=== PATIENT | male | born 1950 | race Caucasian/White ===

== ENCOUNTER 2023-05-22 16:15 | Inpatient (IN) ==
[2023-05-22] MEDS ORDERED: ALBUTEROL 0.083% NEB NEB ONE (16:37)
[2023-05-22] MEDS ORDERED: LACTATED RINGERS 1,000 ML IV ONE (16:38)
--- NOTE | 2023-05-22 16:50 | ED.PDOC ---
General ED Provider: Dr. DORIS OWENS MD Chief Complaint: Cough Stated Complaint: cough 72 years old male with past medical history of coronary artery disease status post CABG, hypertension, diabetes, dyslipidemia coming to the emergency room for cough and fever. Patient reports that his cough is productive with greenish- yellow sputum associated with some shortness of breath. Patient tried some antibiotic was leftover from his but did not help. Patient denies any history of kidney disease. No chest pain, nausea, vomiting, changes in bowel or urine. Time Seen by Provider: 05/22/23 16:20 Information Source: Patient and Family Primary Care Provider: NANCI CAIN Nursing and Triage Documentation Reviewed and Agree: Yes What is Opioid Naive?: *Opioid Naive implies the patient is not already taking opioids or not chronically receiving opioids on a daily basis. *PRN dosing is not "usually" associated with tolerance. *Patients are at higher risk of over-sedation and aspiration. What is Opioid Tolerant?: *Opioid Tolerance implies less than the expected response to an opioid. *Acquired tolerance is defined by the patient taking 60mg of oral morphine daily (or equianalgesic dose of another opioid) for 1 week or more. *Often associated with chronic pain. *May take more than usual dose to achieve desired pain control. Review of Systems Review Of Systems Constitutional: Reports No symptoms All Other Systems: Reviewed and Negative Physical Exam Physical Exam Appearance: Reports Ill-appearing Ill-appearing: Mild Pain Distress: None Eyes: Reports KIMMY and EOMI ENT: Reports Ears normal and Nose normal Neck: Supple Respiratory: Reports Breath sounds diminished and Rhonchi (middle lobes bilateral) Cardiovascular: Reports RRR, Pulses normal, No rub and No murmur GI/: Reports Soft, Nontender and No masses Musculoskeletal: Reports Normal strength and ROM intact Skin: Reports Warm and Normal color Neurological: Reports Sensation intact and Motor intact Interpretation EKG Interpretation EKG Interpretation By: ED Physician Time of EKG #1: 16:50 Rate: Normal Rhythm: Sinus Ectopy: None Tiller: NL ST Segment: Normal Interpretation: no signs of acute ischemia Critical Care Note Critical Care Note Total Critical Care Time (mins): 0 Course Course 05/22/23 17:19 05/22/23 17:19 Orders, Labs, Meds: Lab Review 05/22/23 05/22/23 16:45 17:19 WBC 20.04 H RBC 3.90 L Hgb 12.0 L Hct 38.0 L MCV 97.4 H MCH 30.8 MCHC 31.6 L RDW Coeff of Shaun 14.0 Plt Count 193 Immature Gran % (Auto) 0.6 Neut % (Auto) 87.1 H Lymph % (Auto) 5.7 L Redwood % (Auto) 6.1 Eos % (Auto) 0.1 Baso % (Auto) 0.4 Neut # (Auto) 17.5 H Lymph # (Auto) 1.2 Redwood # (Auto) 1.2 Eos # (Auto) 0.0 Baso # (Auto) 0.1 Immature Gran # (Auto) 0.1 Sodium 138.7 Potassium 3.93 Chloride 103.0 Carbon Dioxide 26.9 Anion Gap 12.73 BUN 48.9 H Creatinine 1.91 H Estimated GFR (MDRD) 35.00 BUN/Creatinine Ratio 25.60 Glucose 161.6 H Lactic Acid 1.42 Calcium 8.60 Total Bilirubin 0.50 AST 234.2 H ALT 51.1 H Alkaline Phosphatase 138.7 H Total Protein 7.83 Albumin 3.78 Globulin 4.05 Albumin/Globulin Ratio 0.93 Influ A Molecular Assay Negative by naat Influ B Molecular Assay Negative by naat RSV Antigen Negative by naat SARS CoV-2 RNA Rapid ALEXANDER Negative Orders Category Date Time Status ADMIT PATIENT INPATIENT .[facility] ADMISSION 05/22/23 18:53 Ordered EKG-(ED ONLY) Stat CARDIO 05/22/23 16:37 Completed NEBULIZER TREATMENT Routine CARDIO 05/22/23 16:38 Completed NEBULIZER TREATMENT Stat CARDIO 05/22/23 16:38 Completed IV ACCESS ONCE CARE 05/22/23 16:38 Active TELEMETRY MONITORING TELE CARE 05/22/23 18:53 Ordered Monitor [ED TERRA COTTA SETTER APPLIED] .ONCE EMERGENCY 05/22/23 16:39 Active BLOOD CULTURE Stat LAB 05/22/23 18:09 Ordered CBC W/ AUTO DIFF Stat LAB 05/22/23 17:19 Completed CMP [COMPREHENSIVE METABOLIC PANEL] Stat LAB 05/22/23 17:19 Completed COVID [SARS COV-2 RNA RAPID ALEXANDER] Stat LAB 05/22/23 16:45 Completed FLU A & B MOLECULAR [FLU A/B MOLECULAR] Stat LAB 05/22/23 16:45 Completed LACTIC ACID Stat LAB 05/22/23 17:19 Completed LACTIC ACID Stat LAB 05/22/23 18:09 Ordered RSV Stat LAB 05/22/23 16:45 Completed Albuterol Sulfate 0.083% Neb [Albuterol 0.083% Neb] Meds 05/22/23 16:37 Discontinued 2.5 mg NEB ONCE ONE Azithromycin Inj [Zithromax] 500 mg Meds 05/22/23 18:00 Active 0.9 % Sodium Chloride [Sodium Chloride] 250 ml IV ONCE Ceftriaxone/D5w 1 gm Premix [Rocephin 1 gm/50 ml D5w] Meds 05/22/23 18:00 Discontinued 1 gm in 50 ml IV ONCE Ringers Lactated Solution [Lactated Ringers] 1,000 ml Meds 05/22/23 16:38 Discontinued IV BOLUS CXR [CHEST, 1V AP ONLY] Stat RADS 05/22/23 17:47 Completed Medications Generic Name Dose Route Start Last Admin Trade Name Freq PRN Reason Stop Dose Admin Azithromycin 500 mg/ Sodium 250 mls @ 250 mls/hr 05/22/23 18:00 Chloride IV 05/22/23 18:59 ONCE ONE Discontinued Medications Generic Name Dose Route Start Last Admin Trade Name Freq PRN Reason Stop Dose Admin Albuterol Sulfate 2.5 mg 05/22/23 16:37 05/22/23 17:02 Albuterol Sulfate 0.083% Vial.Neb NEB 05/22/23 16:38 2.5 mg ONCE ONE Administration Lactated Ringer's 1,000 mls @ 1,000 mls/hr 05/22/23 16:38 05/22/23 18:00 Lactated Ringers IV 05/22/23 17:37 Infused BOLUS ONE Infusion CEFTRIAXONE/D5W 1 GM PREMIX 1 gm in 50 mls @ 100 mls/hr 05/22/23 18:00 05/22/23 18:42 Rocephin 1 Gm/50 Ml D5w IV 05/22/23 18:29 100 mls/hr ONCE ONE Administration Vital Signs: Temp Pulse Resp BP Pulse Ox O2 Flow Rate 05/22/23 16:52 2 05/22/23 16:18 99.0 F 86 20 121/70 89 L Discharge Plan Discharge Patient Disposition: ADMITTED INPATIENT Discharge Problem: Acute renal failure, CAP (community acquired pneumonia) Did you review [place] [employer] for ALL controlled substances?: Not Applicable ED Provider: DORIS OWENS Condition: Stable Physician Progress Note: Patient CBC showed leukocytosis with left shift, chest x-ray showing pneumonia. Patient was given Rocephin and azithromycin IV and a liter of lactated Ringer. Patient was hypoxic on room air started on 2 L nasal cannula called the hospitalist on-call Arelis discussed the patient case with her and the need for admission for further IV antibiotics and IV fluids and she agreed to admit the patient to her services.
[2023-05-22 17:33] LABS: MOLECULAR FLU A NEGATIVE BY NAAT (NEGATIVE); MOLECULAR FLU B NEGATIVE BY NAAT (NEGATIVE); RSV MOLECULAR NEGATIVE BY NAAT (NEGATIVE); SARS COV-2 RNA RAPID NAAT NEGATIVE (NEGATIVE)
[2023-05-22 17:35] LABS: BASOPHILS # (AUTO) 0.1 K/uL (0-0.2); BASOPHILS % (AUTO) 0.4 % (0.0-3.0); EOSINOPHILS % (AUTO) 0.1 % (0.0-7.0); IMMATURE GRANULOCYTE # (AUTO) 0.1 (0.0-1.0); IMMATURE GRANULOCYTE % (AUTO) 0.6 % (0.0-5.0); LYMPHOCYTES # (AUTO) 1.2 K/uL (0.60-3.4); LYMPHOCYTES % (AUTO) 5.7 (10.0-50.0); MEAN CORPUSCULAR HEMOGLOBIN 30.8 pg (27.0-31.0); MEAN CORPUSCULAR HGB CONC 31.6 (31.8-35.4); MEAN CORPUSCULAR VOLUME 97.4 fl (80.0-94.0); MONOCYTES # (AUTO) 1.2 K/uL (0.4-2.0); MONOCYTES % (AUTO) 6.1 (0-10); NEUTROPHILS # (AUTO) 17.5 K/ul (2.0-6.9); NEUTROPHILS % (AUTO) 87.1 % (42.2-75.2); PLATELET COUNT 193 10^3/uL (140-440); WHITE BLOOD COUNT 20.04 K/ul (4.2-10.2)
[2023-05-22 17:42] LABS: ALANINE AMINOTRANSFERASE 51.1 U/L (0-50); ALBUMIN 3.78 g/dL (3.5-5.0); ALKALINE PHOSPHATASE 138.7 U/L (56-119); ASPARTATE AMINO TRANSFERASE 234.2 U/L (17-59); BILIRUBIN,TOTAL 0.5 mg/dL (0.2-1.3); BLOOD UREA NITROGEN 48.9 mg/dL (9-20); CALCIUM 8.6 mg/dL (8.4-10.2); CARBON DIOXIDE 26.9 mmol/L (22-30.0); CREATININE 1.91 mg/dL (0.60-1.10); GLUCOSE 161.6 mg/dL (74-106); SODIUM 138.7 mmol/L (134.5-145); TOTAL PROTEIN 7.83 g/dL (6.3-8.2)
[2023-05-22] MEDS ORDERED: ROCEPHIN 1 GM/50 ML D5W 1 GM/50 ML BAG IV ONE (18:00)
[2023-05-22] MEDS ORDERED: ZITHROMAX 500 MG in SODIUM CHLORIDE 250 ML IV ONE (18:00)
[2023-05-22 18:23] LABS: POTASSIUM 3.93 mmol/L (3.5-5.1)
--- NOTE | 2023-05-22 18:40 | DI ---
EXAM: PORTABLE CHEST HISTORY: Cough COMPARISON: None. FINDINGS / impression: : The heart is top normal in size. The aortic arch is atherosclerotic.. There has been prior media stinotomy. Calcified lymph nodes are seen in the bilateral hilar region. Streaky opacities noted raghav th lung bases which may be related to atelectasis versus developing pneumonia. There is no evidence of pleural effusion.
[2023-05-22] MEDS ORDERED: ZOFRAN 4 MG/2 ML IVP PRN (19:24)
[2023-05-22] MEDS ORDERED: TYLENOL PO PRN (19:24)
[2023-05-22] MEDS: LACTATED RINGERS 1,000 ML IV SCH (19:52)
[2023-05-22] MEDS ORDERED: ZYLOPRIM PO PRN (21:29)
[2023-05-22] MEDS ORDERED: ROBITUSSIN DM SYRUP PO PRN (21:32)
[2023-05-22] MEDS ORDERED: TESSALON PERLES PO PRN (21:33)
[2023-05-22 21:52] VITALS: BMI 28.4
[2023-05-22] MEDS: TESSALON PERLES PO PRN (22:06)
[2023-05-22] MEDS: MYSOLINE PO SCH (22:06)
[2023-05-22] MEDS: LIPITOR PO SCH (22:06)
[2023-05-22] MEDS: ROBITUSSIN DM SYRUP PO PRN (22:07)
[2023-05-23 05:46] LABS: BASOPHILS # (AUTO) 0.1 K/uL (0-0.2); BASOPHILS % (AUTO) 0.4 % (0.0-3.0); EOSINOPHILS % (AUTO) 0.1 % (0.0-7.0); HEMATOCRIT 37.9 % (42.0-52.0); HEMOGLOBIN 11.9 g/dl (14.0-18.0); IMMATURE GRANULOCYTE # (AUTO) 0.1 (0.0-1.0); IMMATURE GRANULOCYTE % (AUTO) 0.8 % (0.0-5.0); LYMPHOCYTES # (AUTO) 1.3 K/uL (0.60-3.4); LYMPHOCYTES % (AUTO) 7.3 (10.0-50.0); MEAN CORPUSCULAR HEMOGLOBIN 30.8 pg (27.0-31.0); MEAN CORPUSCULAR HGB CONC 31.4 (31.8-35.4); MEAN CORPUSCULAR VOLUME 98.2 fl (80.0-94.0); MONOCYTES % (AUTO) 5.7 (0-10); NEUTROPHILS # (AUTO) 15.7 K/ul (2.0-6.9); NEUTROPHILS % (AUTO) 85.7 % (42.2-75.2); PLATELET COUNT 186 10^3/uL (140-440); RDW COEFFICIENT OF VARIATION 13.8 % (11.6-14.8); RED BLOOD COUNT 3.86 10^6/ul (4.70-6.10); WHITE BLOOD COUNT 18.34 K/ul (4.2-10.2)
[2023-05-23 05:54] LABS: ALANINE AMINOTRANSFERASE 38.5 U/L (0-50); ALBUMIN 3.3 g/dL (3.5-5.0); ALKALINE PHOSPHATASE 120.4 U/L (56-119); BILIRUBIN,TOTAL 0.42 mg/dL (0.2-1.3); BLOOD UREA NITROGEN 46.1 mg/dL (9-20); CALCIUM 8.54 mg/dL (8.4-10.2); CARBON DIOXIDE 31.8 mmol/L (22-30.0); CHLORIDE 101.4 mmol/L (98-107); CREATININE 1.81 mg/dL (0.60-1.10); GLUCOSE 133.5 mg/dL (74-106); POTASSIUM 4.01 mmol/L (3.5-5.1); SODIUM 139.4 mmol/L (134.5-145); TOTAL PROTEIN 7.01 g/dL (6.3-8.2)
[2023-05-23] MEDS: LACTATED RINGERS 1,000 ML IV SCH ×2 (05:57→15:56)
[2023-05-23] MEDS: IMDUR PO SCH (08:09)
[2023-05-23] MEDS: TOPROL XL PO SCH (08:09)
[2023-05-23] MEDS: MYSOLINE PO SCH ×3 (08:09→20:01)
[2023-05-23] MEDS: ASPIRIN CHEWABLE PO SCH (08:10)
[2023-05-23] MEDS: DUONEB NEB PRN (08:32)
[2023-05-23] MEDS ORDERED: GLUCOPHAGE PO SCH (09:00)
[2023-05-23] MEDS ORDERED: NON-FORMULARY MEDICATION (Losartan-Hydrochlorothiazide 100-25 mg tablet) PO SCH (09:00)
[2023-05-23] MEDS: TESSALON PERLES PO PRN ×2 (09:05→19:59)
[2023-05-23] MEDS: MUCINEX PO SCH ×2 (09:05→20:00)
--- NOTE | 2023-05-23 09:13 | PCM ---
Date of Service Date Seen by Provider: 05/23/23 Time Seen by Provider: 08:45 Admit Day/Time Admission Date: 05/22/23 Admission Time: 18:53 Reason for Admission Chief Complaint: PNEUMONIA, ACUTE RENAL FAILURE Hospital Provider Hospital Provider: LAUREANO CAVAZOS PA-C, [facility] [place] Primary Care Physician Primary Care Physician: NANCI CAIN History of Present Illness History of Present Illness: Patient is a 72 year old male from home with pmhx of CAD s/p CABG x20 yrs ago, DMT2, hyperlipidemia, hypertension, BPH, who presented to the ER with 1 week history of cough, sob, fever, weakness. He took some antibiotics at home for a day or two without improvement. He does not wear home O2. He was found to be hypoxic in the 80s in the ER, improved with 2L. CXR shows likely bilateral pneumonia. WBC count was elevated at 20K, procal 0.44. Patient also has elevated Cr and BUN from baseline. States he's had decreased intake over last few days. Liver enzymes elevated. He was given fluids, azithromycin, and rocephin. Patient did well through the night but has a cough and drops into the 80s anytime he removes his O2. He states he is feeling somewhat better today. He lives at home with his and usually does not require any assistance with ambulation. Case Discussed With Case Discussed With: Patient's case was discussed with the ER Physicians, Dr. Dill [facility] Medical History BPH (benign prostatic hyperplasia) N40.0 - Benign prostatic hyperplasia without lower urinary tract symptoms (ICD-10) Diabetes 1.5, managed as type 2 E13.9 - Other specified diabetes mellitus without complications (ICD-10) Surgical History History of appendectomy Z90.49 - Acquired absence of other specified parts of digestive tract (ICD- 10) Hx of CABG 03/28/1999 Z95.1 - Presence of aortocoronary bypass graft (ICD-10) Family History FATHER Diabetes CVA (cerebral vascular accident) CAD (coronary artery disease) Mother AD (Alzheimer's disease) Social History Smoking and tobacco status: Never smoker Alcohol intake: never Substance use type: does not use Special bianca needs: No Household members: spouse Housing: house Lives independently: Yes Number of children: 2 (one child is ) Highest education level completed: Bachelor's degree Seatbelt use: always Helmet use: No Drives intoxicated or rides with intoxicated party bus driver: No Current diet type/program: diabetic Well-balanced diet: about half the time Eating out: 1-3 times/week Water heater temperature set < 120 degrees: Yes Fire extinguisher in home: Yes Carbon monoxide detector in home: No What type of physical activity do you participate in?: walking Allergies Allergies Allergy/AdvReac Type Severity Reaction Status Date / Time No Known Allergies Allergy Verified 05/22/23 16:23 Current Medications Home Medications allopurinol 100 mg tablet 100 mg PO DAILY PRN Gout Flare 12/20/20 [History Confirmed 05/22/23 Last Taken 05/22/23] aspirin 81 mg tablet 81 mg PO DAILY 12/20/20 [History Confirmed 05/22/23 Last Taken 05/22/23] atorvastatin 40 mg tablet 40 mg PO BEDTIME 12/20/20 [History Confirmed 05/22/23 Last Taken 05/21/23] isosorbide mononitrate 30 mg tablet,extended release 24 hr 30 mg PO DAILY 12/20/20 [History Confirmed 05/22/23 Last Taken 05/22/23] losartan 100 mg-hydrochlorothiazide 25 mg tablet 1 tab PO DAILY 12/20/20 [History Confirmed 05/22/23 Last Taken 05/22/23] metformin 1,000 mg tablet 1,000 mg PO DAILY 12/20/20 [History Confirmed 05/22/23 Last Taken 05/22/23 09:00] metoprolol succinate 50 mg tablet,extended release 24 hr 50 mg PO DAILY 12/20/20 [History Confirmed 05/22/23 Last Taken 05/22/23] primidone 250 mg tablet 250 mg PO TID 12/20/20 [History Confirmed 05/22/23 Last Taken 05/22/23 12:00] Home Acetaminophen (Acetaminophen 325 Mg Tablet) 650 mg PO Q4H PRN PRN Reason: Mild Pain Albuterol/Ipratropium (Ipratropium/Albuterol Vial.Neb) 3 ml NEB RTQ6H PRN PRN Reason: Wheezing Last Admin: 05/23/23 08:32 Dose: 3 ml Allopurinol (Allopurinol 100 Mg Tablet) 100 mg PO DAILY PRN PRN Reason: MODERATE PAIN Last Admin: 05/23/23 08:15 Dose: 100 mg Aspirin (Aspirin 81 Mg Tab.Chew) 81 mg PO DAILYWM2 [facility] Last Admin: 05/23/23 08:10 Dose: 81 mg Atorvastatin Calcium (Atorvastatin Calcium 20 Mg Tablet) 40 mg PO BEDTIME [facility] Last Admin: 05/22/23 22:06 Dose: 40 mg Benzonatate (Benzonatate 100 Mg Capsule) 100 mg PO TID PRN PRN Reason: Cough Last Admin: 05/23/23 09:05 Dose: 100 mg Enoxaparin Sodium (Enoxaparin Sodium 40 Mg/0.4 Ml Syr) 40 mg SUBCUT DAILY [facility] Last Admin: 05/23/23 09:32 Dose: 40 mg Guaifenesin (Guaifenesin 600 Mg Tablet.Er) 600 mg PO Q12HR [facility] Last Admin: 05/23/23 09:05 Dose: 600 mg Guaifenesin/Dextromethorphan (Guaifenesin/Dextromethorphan 200/20 Mg/10 Ml Cup) 5 ml PO Q4H PRN PRN Reason: Cough Last Admin: 05/22/23 22:07 Dose: 5 ml Lactated Ringer's (Lactated Ringers) 1,000 mls @ 100 mls/hr IV .Q10H [facility] Last Admin: 05/23/23 05:57 Dose: 100 mls/hr Azithromycin 500 mg/ Sodium (Chloride) 250 mls @ 250 mls/hr IV BEDTIME [facility] Stop: 05/25/23 20:59 CEFTRIAXONE/D5W 1 GM PREMIX (Rocephin 1 Gm/50 Ml D5w) 1 gm in 50 mls @ 100 mls/hr IV BEDTIME [facility] Stop: 05/26/23 20:59 Insulin Human Lispro (Insulin Lispro 100 Unit/Ml Vial) 0 unit SUBCUT PRN PRN; Protocol PRN Reason: Hyperglycemia Isosorbide Mononitrate (Isosorbide Mononitrate 30 Mg Tab.Er.24h) 30 mg PO DAILY [facility] Last Admin: 05/23/23 08:09 Dose: 30 mg Metoprolol Succinate (Metoprolol Succinate 50 Mg Tab.Er.24h) 50 mg PO DAILY [facility] Last Admin: 05/23/23 08:09 Dose: 50 mg Ondansetron HCl (Ondansetron Hcl/Pf 4 Mg/2 Ml Sdv) 4 mg IVP Q6H PRN PRN Reason: Nausea / Vomiting Primidone (Primidone 50 Mg Tablet) 250 mg PO TID [facility] Last Admin: 05/23/23 08:09 Dose: 250 mg Discontinued Medications Albuterol Sulfate (Albuterol Sulfate 0.083% Vial.Neb) 2.5 mg NEB ONCE ONE Stop: 05/22/23 16:38 Last Admin: 05/22/23 17:02 Dose: 2.5 mg Benzonatate (Benzonatate 100 Mg Capsule) 200 mg PO TID PRN PRN Reason: Cough Guaifenesin/Dextromethorphan (Guaifenesin/Dextromethorphan 200/20 Mg/10 Ml Cup) 10 ml PO Q4H PRN PRN Reason: Cough Lactated Ringer's (Lactated Ringers) 1,000 mls @ 1,000 mls/hr IV BOLUS ONE Stop: 05/22/23 17:37 Last Infusion: 05/22/23 18:00 Dose: Infused CEFTRIAXONE/D5W 1 GM PREMIX (Rocephin 1 Gm/50 Ml D5w) 1 gm in 50 mls @ 100 mls/hr IV ONCE ONE Stop: 05/22/23 18:29 Last Admin: 05/22/23 18:42 Dose: 100 mls/hr Azithromycin 500 mg/ Sodium (Chloride) 250 mls @ 250 mls/hr IV ONCE ONE Stop: 05/22/23 18:59 Last Admin: 05/22/23 19:53 Dose: 250 mls/hr Metformin HCl (Metformin Hcl 500 Mg Tablet) 1,000 mg PO DAILY [facility] Non-Formulary Medication (Losartan-Hydrochlorothiazide) 1 tab PO DAILY [facility] Opioid Naive vs. Tolerant Does Patient Take Opioids?: No Is Patient Opioid Naive?: Yes What is Opioid Naive?: *Opioid Naive implies the patient is not already taking opioids or not chronically receiving opioids on a daily basis. *PRN dosing is not "usually" associated with tolerance. *Patients are at higher risk of over-sedation and aspiration. Is Patient Opioid Tolerant?: No What is Opioid Tolerant?: *Opioid Tolerance implies less than the expected response to an opioid. *Acquired tolerance is defined by the patient taking 60mg of oral morphine daily (or equianalgesic dose of another opioid) for 1 week or more. *Often associated with chronic pain. *May take more than usual dose to achieve desired pain control. Review of Systems Constitutional: Reports Fever, Fatigue, Chills, Weakness and Loss of appetite Head: Reports Normocephalic and Atraumatic Cardiovascular: Denies Chest pain, Chest Pressure or Edema Respiratory: Reports Cough and Shortness of air Gastrointestinal: Denies Nausea, Vomiting, Diarrhea, Abdominal pain or Melena Dermatologic: Denies Rashes Neurological: Reports Weakness and Problems with walking Physical examination Most Recent Vital Signs: Most Recent Vital Signs Temperature 98.2 F 05/23/23 05:21 Temperature Source Temporal Artery Scan 05/23/23 05:21 Temperature Source Infrared 05/22/23 16:18 Pulse Rate 85 05/23/23 05:21 Respiratory Rate 18 05/23/23 05:21 Blood Pressure 121/60 05/23/23 05:21 Blood Pressure Mean 80 05/23/23 05:21 Blood Pressure Right Arm 137/61 05/22/23 20:33 Blood Pressure Location Right Arm 05/23/23 05:21 Blood Pressure Position Supine 05/23/23 05:21 O2 Sat by Pulse Oximetry 95 05/23/23 08:31 Oxygen Delivery Method Nasal Cannula 05/23/23 08:31 Oxygen Flow Rate 2 05/23/23 08:31 Height 5 ft 11 in 05/22/23 20:33 Weight 204 lb 2 oz 05/22/23 20:33 Telemetry Type Remote Telemetry 05/23/23 07:00 Telemetry Monitoring Continues 05/23/23 07:00 Telemetry Heart Rate 87 05/23/23 07:00 Telemetry SPO2 95 05/23/23 07:00 EKG GA Interval 0.27 H 05/23/23 07:00 EKG QRS Interval 0.11 H 05/23/23 07:00 Telemetry Strip Reading SR w/1st degree AVB & BBB 05/23/23 07:00 Appearance: Positive No Apparent Distress and Alert and Oriented x3 Skin: Negative Rashes HEENT: Positive Normocephalic and Atraumatic; Negative Oral Mucous Moist Neck: Positive Supple and Midline Trachea Chest/Lungs: Positive Symmetrical With Equal Breath Sounds and Rhonci (+very mild, nestor bases ); Negative Rales or Wheezes Heart: Positive RRR GI/: Positive Soft, Nontender, Bowel Sounds Normal and No Distention Extremities: Negative Edema Neurological: Positive Cranial Nerves Intact, Alert and Other (+generalized weakness, no focal deficits. ) Psychiatric: Positive Oriented x4, Appropriate Mood and Appropriate Affect Labs This Visit Labs This Visit: Labs This Visit 05/22/23 05/22/23 05/22/23 16:45 17:19 18:40 WBC 20.04 H RBC 3.90 L Hgb 12.0 L Hct 38.0 L MCV 97.4 H MCH 30.8 MCHC 31.6 L RDW Coeff of Shaun 14.0 Plt Count 193 Immature Gran % (Auto) 0.6 Neut % (Auto) 87.1 H Lymph % (Auto) 5.7 L Woods % (Auto) 6.1 Eos % (Auto) 0.1 Baso % (Auto) 0.4 Neut # (Auto) 17.5 H Lymph # (Auto) 1.2 Woods # (Auto) 1.2 Eos # (Auto) 0.0 Baso # (Auto) 0.1 Immature Gran # (Auto) 0.1 Sodium 138.7 Potassium 3.93 Chloride 103.0 Carbon Dioxide 26.9 Anion Gap 12.73 BUN 48.9 H Creatinine 1.91 H Estimated GFR (MDRD) 35.00 BUN/Creatinine Ratio 25.60 Glucose 161.6 H Lactic Acid 1.42 1.33 Calcium 8.60 Total Bilirubin 0.50 AST 234.2 H ALT 51.1 H Alkaline Phosphatase 138.7 H Total Protein 7.83 Albumin 3.78 Globulin 4.05 Albumin/Globulin Ratio 0.93 Procalcitonin 0.44 H Influ A Molecular Assay Negative by naat Influ B Molecular Assay Negative by naat RSV Antigen Negative by naat SARS CoV-2 RNA Rapid ALEXANDER Negative 05/23/23 05:10 WBC 18.34 H RBC 3.86 L Hgb 11.9 L Hct 37.9 L MCV 98.2 H MCH 30.8 MCHC 31.4 L RDW Coeff of Shaun 13.8 Plt Count 186 Immature Gran % (Auto) 0.8 Neut % (Auto) 85.7 H Lymph % (Auto) 7.3 L Woods % (Auto) 5.7 Eos % (Auto) 0.1 Baso % (Auto) 0.4 Neut # (Auto) 15.7 H Lymph # (Auto) 1.3 Woods # (Auto) 1.0 Eos # (Auto) 0.0 Baso # (Auto) 0.1 Immature Gran # (Auto) 0.1 Sodium 139.4 Potassium 4.01 Chloride 101.4 Carbon Dioxide 31.8 H Anion Gap 10.21 BUN 46.1 H Creatinine 1.81 H Estimated GFR (MDRD) 37.00 BUN/Creatinine Ratio 25.46 Glucose 133.5 H Lactic Acid Calcium 8.54 Total Bilirubin 0.42 AST 150.0 H D ALT 38.5 Alkaline Phosphatase 120.4 H Total Protein 7.01 Albumin 3.30 L Globulin 3.71 Albumin/Globulin Ratio 0.88 Procalcitonin Influ A Molecular Assay Influ B Molecular Assay RSV Antigen SARS CoV-2 RNA Rapid ALEXANDER Imaging Imaging: EXAM: PORTABLE CHEST HISTORY: Cough COMPARISON: None. FINDINGS / impression: : The heart is top normal in size. The aortic arch is atherosclerotic.. There has been prior mediastinotomy. Calcified lymph nodes are seen in the bilateral hilar region. Streaky opacities noted both lung bases which may be related to atelectasis versus developing pneumonia. There is no evidence of pleural effusion. Review Statement Review Statement: I have independently reviewed and interpreted the labs/EKGs/imaging that were ordered by the ER provider. I have reviewed all outside records that are available currently in our EMR including imaging/notes/labs from previous visits. Plan Plan: 1. Acute hypoxic respiratory failure in setting of CAP - Cont abx, duonebs, wean O2 when able. 2. Community acquired pneumonia, bilateral - Plan as above. Check legionella, strep pneumo, sputum culture. BC pending. Trend procal. 3. NAILA, stage I - Improved, continue gentle hydration. 4. Elevated liver enzymes - Improving, likely in setting of infection. Trend. 5. DMT2 - Hold metformin. Accuchecks ordered. Mild humalog sliding scale. 6. Hypertension - Hold losartan/HCTZ due to NAILA. 7. Hyperlipidemia - Cont statin since liver enzymes are improving, not related. DVT Prophylaxis: Lovenox Time Spent: Greater than 80 minutes spent with patient, 50% of the time spent with this patient was devoted to counseling and coordination of care. [facility] Plannin minutes spent discussing advance care planning. FULL CODE Admit to: Inpatient Discussed Plan of Care with Dr. Mikel Starks. Medications Medication Orders: Medications Ordered Category Date Time Status Acetaminophen [Tylenol] Meds 05/22/23 19:24 Active 650 mg PO Q4H PRN Allopurinol [Zyloprim] Meds 05/22/23 21:29 Active 100 mg PO DAILY PRN Aspirin [Aspirin Chewable] Meds 05/23/23 07:30 Active 81 mg PO DAILYWM2 Atorvastatin Calcium [Lipitor] Meds 05/22/23 22:00 Active 40 mg PO BEDTIME Azithromycin Inj [Zithromax] 500 mg Meds 05/23/23 21:00 Active 0.9 % Sodium Chloride [Sodium Chloride] 250 ml IV BEDTIME Benzonatate [Tessalon Perles] Meds 05/22/23 21:38 Active 100 mg PO TID PRN Ceftriaxone/D5w 1 gm Premix [Rocephin 1 gm/50 ml D5w] Meds 05/23/23 21:00 Active 1 gm in 50 ml IV BEDTIME Guaifenesin [Mucinex] Meds 05/23/23 09:00 Active 600 mg PO Q12HR Guaifenesin/Dextromethorphan [Robitussin Dm Syrup] Meds 05/22/23 21:38 Active 5 ml PO Q4H PRN Ipratropium/Albuterol Neb [Duoneb] Meds 05/22/23 19:28 Active 3 ml NEB RTQ6H PRN Isosorbide Mononitrate [Imdur] Meds 05/23/23 09:00 Active 30 mg PO DAILY Metoprolol Succinate [Toprol Xl] Meds 05/23/23 09:00 Active 50 mg PO DAILY Ondansetron HCl/Pf [Zofran 4 mg/2 ml] Meds 05/22/23 19:24 Active 4 mg IVP Q6H PRN Primidone [Mysoline] Meds 05/22/23 21:00 Active 250 mg PO TID Ringers Lactated Solution [Lactated Ringers] 1,000 ml Meds 05/22/23 19:30 Active IV 100 mls/hr
[2023-05-23] MEDS: LOVENOX SUBCUT SCH (09:32)
[2023-05-23] MEDS: ROBITUSSIN DM SYRUP PO PRN (19:59)
[2023-05-23] MEDS: ZITHROMAX 500 MG in SODIUM CHLORIDE 250 ML IV SCH (20:00)
[2023-05-23] MEDS: LIPITOR PO SCH (20:00)
[2023-05-23] MEDS: ROCEPHIN 1 GM/50 ML D5W 1 GM/50 ML BAG IV SCH (21:11)
[2023-05-24] MEDS: LACTATED RINGERS 1,000 ML IV SCH ×3 (02:35→22:27)
[2023-05-24] MEDS: DUONEB NEB PRN (03:40)
[2023-05-24 05:14] LABS: BASOPHILS % (AUTO) 0.2 % (0.0-3.0); EOSINOPHILS # (AUTO) 0.1 K/ul (0.0-0.7); EOSINOPHILS % (AUTO) 0.3 % (0.0-7.0); HEMATOCRIT 35.4 % (42.0-52.0); HEMOGLOBIN 10.9 g/dl (14.0-18.0); IMMATURE GRANULOCYTE # (AUTO) 0.2 (0.0-1.0); IMMATURE GRANULOCYTE % (AUTO) 1.2 % (0.0-5.0); LYMPHOCYTES # (AUTO) 1.4 K/uL (0.60-3.4); MEAN CORPUSCULAR HEMOGLOBIN 30.7 pg (27.0-31.0); MEAN CORPUSCULAR HGB CONC 30.8 (31.8-35.4); MEAN CORPUSCULAR VOLUME 99.7 fl (80.0-94.0); MONOCYTES % (AUTO) 5.8 (0-10); NEUTROPHILS # (AUTO) 14.6 K/ul (2.0-6.9); NEUTROPHILS % (AUTO) 84.5 % (42.2-75.2); PLATELET COUNT 202 10^3/uL (140-440); RDW COEFFICIENT OF VARIATION 13.7 % (11.6-14.8); RED BLOOD COUNT 3.55 10^6/ul (4.70-6.10); WHITE BLOOD COUNT 17.32 K/ul (4.2-10.2)
[2023-05-24 05:29] LABS: ALANINE AMINOTRANSFERASE 45.1 U/L (0-50); ALBUMIN 3.32 g/dL (3.5-5.0); ALKALINE PHOSPHATASE 160.7 U/L (56-119); BILIRUBIN,TOTAL 0.31 mg/dL (0.2-1.3); BLOOD UREA NITROGEN 37.9 mg/dL (9-20); CALCIUM 8.55 mg/dL (8.4-10.2); CARBON DIOXIDE 31.5 mmol/L (22-30.0); CHLORIDE 103.7 mmol/L (98-107); CREATININE 1.61 mg/dL (0.60-1.10); SODIUM 140.6 mmol/L (134.5-145); TOTAL PROTEIN 7.01 g/dL (6.3-8.2)
[2023-05-24 05:30] LABS: POTASSIUM 4.01 mmol/L (3.5-5.1)
[2023-05-24] MEDS: MYSOLINE PO SCH ×3 (08:38→20:37)
[2023-05-24] MEDS: IMDUR PO SCH (08:38)
[2023-05-24] MEDS: ASPIRIN CHEWABLE PO SCH (08:38)
[2023-05-24] MEDS: TOPROL XL PO SCH (08:38)
[2023-05-24] MEDS: MUCINEX PO SCH ×2 (08:39→20:37)
[2023-05-24] MEDS: LOVENOX SUBCUT SCH (08:39)
--- NOTE | 2023-05-24 08:59 | PCM.PROG ---
Date/Time Seen Date Seen by Provider: 05/24/23 Time Seen by Provider: 08:30 Provider Provider: LAUREANO CAVAZOS [facility] Chief Complaint Chief Complaint: PNEUMONIA, ACUTE RENAL FAILURE Subjective Subjective: O2 sat dropped while sleeping last night. RN increased to 4L and returned within normal limits. Has had concern for sleep apnea in past but did not go through with sleep study. LFTs trending up today. Denies alcohol use. Denies any abdominal pain. Producing clear/white sputum today. Objective Appearance: Positive No Apparent Distress and Alert and Oriented x3 Chest/Lungs: Positive Symmetrical With Equal Breath Sounds, Good Air Movement all 4 Lung Juárez and Other (crackles to LLL) Heart: Positive RRR and Pulses Normal GI/: Positive Soft, Nontender, Bowel Sounds Normal and No Distention Musculoskeletal: Positive Not Examined Neurological: Positive Sensation Intact, Motor intact, Reflexes Intact, Alert, Oriented and Muscle Strength 5/5 in Upper and Lower Extremities Bilaterally Vital Signs Vital Signs: Vital Signs: Last 24 Hours 05/23/23 12:54 05/23/23 13:00 05/23/23 14:00 Temperature 97.9 F Temperature Source Oral Pulse Rate 68 Respiratory Rate 17 Blood Pressure 115/52 L Blood Pressure Mean 73 Blood Pressure Location Left Arm Blood Pressure Position Supine O2 Sat by Pulse Oximetry 95 Oxygen Delivery Method Nasal Cannula Nasal Cannula Oxygen Flow Rate 2 2 Telemetry Type Remote Telemetry Telemetry Monitoring Continues Telemetry Heart Rate 69 Telemetry SPO2 97 EKG MT Interval 0.26 H EKG QRS Interval 0.08 Telemetry Strip Reading SR with 1st degree AVB 05/23/23 17:43 05/23/23 18:46 05/23/23 19:59 Temperature 97.4 F L Temperature Source Oral Pulse Rate 67 Respiratory Rate 18 Blood Pressure 139/61 Blood Pressure Mean 87 Blood Pressure Location Left Arm Blood Pressure Position Supine O2 Sat by Pulse Oximetry 93 L Oxygen Delivery Method Nasal Cannula Nasal Cannula Oxygen Flow Rate 2 2.5 Telemetry Type Remote Telemetry Telemetry Monitoring Continues Telemetry Heart Rate 65 Telemetry SPO2 99 EKG MT Interval 0.29 H EKG QRS Interval 0.08 Telemetry Strip Reading SR W/ 1ST DEGREE AVB 05/23/23 20:00 05/23/23 21:04 05/24/23 01:00 Temperature 98.7 F Temperature Source Temporal Artery Scan Pulse Rate 83 Respiratory Rate 18 Blood Pressure 148/62 H Blood Pressure Mean 90 Blood Pressure Location Left Arm Blood Pressure Position Supine O2 Sat by Pulse Oximetry 93 L 96 Oxygen Delivery Method Nasal Cannula Nasal Cannula Oxygen Flow Rate 2 2 Telemetry Type Remote Telemetry Telemetry Monitoring Continues Telemetry Heart Rate 82 Telemetry SPO2 97 EKG MT Interval 0.28 H EKG QRS Interval 0.06 Telemetry Strip Reading SR/1ST DEGREE AVB 05/24/23 05:19 05/24/23 05:38 05/24/23 07:00 Temperature 98.3 F Temperature Source Temporal Artery Scan Pulse Rate 89 Respiratory Rate 18 Blood Pressure 135/64 Blood Pressure Mean 87 Blood Pressure Location Left Arm Blood Pressure Position Supine O2 Sat by Pulse Oximetry 96 92 L Oxygen Delivery Method Nasal Cannula Nasal Cannula Oxygen Flow Rate 4 3 Telemetry Type Remote Telemetry Telemetry Monitoring Continues Telemetry Heart Rate 94 Telemetry SPO2 89 L EKG MT Interval 0.22 H EKG QRS Interval 0.07 Telemetry Strip Reading SR with BBB Lab Results Lab Results: Lab Results: Last 24 Hours 05/24/23 05/22/23 04:59 19:28 WBC 17.32 H RBC 3.55 L Hgb 10.9 L Hct 35.4 L MCV 99.7 H MCH 30.7 MCHC 30.8 L RDW Coeff of Shaun 13.7 Plt Count 202 Immature Gran % (Auto) 1.2 Neut % (Auto) 84.5 H Lymph % (Auto) 8.0 L [place] % (Auto) 5.8 Eos % (Auto) 0.3 Baso % (Auto) 0.2 Neut # (Auto) 14.6 H Lymph # (Auto) 1.4 [place] # (Auto) 1.0 Eos # (Auto) 0.1 Baso # (Auto) 0.0 Immature Gran # (Auto) 0.2 Sodium 140.6 Potassium 4.01 Chloride 103.7 Carbon Dioxide 31.5 H Anion Gap 9.41 BUN 37.9 H Creatinine 1.61 H Estimated GFR (MDRD) 42.00 BUN/Creatinine Ratio 23.54 Glucose 147.0 H Calcium 8.55 Total Bilirubin 0.31 AST 182.0 H D ALT 45.1 Alkaline Phosphatase 160.7 H D Total Protein 7.01 Albumin 3.32 L Globulin 3.69 Albumin/Globulin Ratio 0.89 Procalcitonin 0.39 H Miscellaneous Test Sent to [facility] Additional Comments Additional Comments: I have independently reviewed and interpreted the labs/EKGs/imaging ordered during this hospital stay. I have reviewed outside records that are available in our EMR that pertain to medical stay including imaging/notes/labs from previous visits. Active Medications Active Medications: Medications Generic Name Dose Route Start Last Admin Trade Name Freq PRN Reason Stop Dose Admin Acetaminophen 650 mg 05/22/23 19:24 Acetaminophen 325 Mg Tablet PO Q4H PRN Mild Pain Albuterol/Ipratropium 3 ml 05/22/23 19:28 05/24/23 03:40 Ipratropium/Albuterol Vial.Neb NEB 3 ml RTQ6H PRN Administration Wheezing Allopurinol 100 mg 05/22/23 21:29 05/23/23 08:15 Allopurinol 100 Mg Tablet PO 100 mg DAILY PRN Administration MODERATE PAIN Aspirin 81 mg 05/23/23 07:30 05/24/23 08:38 Aspirin 81 Mg Tab.Chew PO 81 mg DAILYWM2 ELLIE Administration Atorvastatin Calcium 40 mg 05/22/23 22:00 05/23/23 20:00 Atorvastatin Calcium 20 Mg Tablet PO 40 mg BEDTIME ELLIE Administration Benzonatate 100 mg 05/22/23 21:38 05/23/23 19:59 Benzonatate 100 Mg Capsule PO 100 mg TID PRN Administration Cough Enoxaparin Sodium 40 mg 05/23/23 09:25 05/24/23 08:39 Enoxaparin Sodium 40 Mg/0.4 Ml Syr SUBCUT 40 mg DAILY ELLIE Administration Guaifenesin 600 mg 05/23/23 09:00 05/24/23 08:39 Guaifenesin 600 Mg Tablet.Er PO 600 mg Q12HR ELLIE Administration Guaifenesin/Dextromethorphan 5 ml 05/22/23 21:38 05/23/23 19:59 Guaifenesin/Dextromethorphan 200/20 Mg/10 Ml Cup PO 5 ml Q4H PRN Administration Cough Lactated Ringer's 1,000 mls @ 100 mls/hr 05/22/23 19:30 05/24/23 02:35 Lactated Ringers IV 100 mls/hr .Q10H ELLIE Administration Azithromycin 500 mg/ Sodium 250 mls @ 250 mls/hr 05/23/23 21:00 05/23/23 20:00 Chloride IV 05/25/23 20:59 250 mls/hr BEDTIME ELLIE Administration CEFTRIAXONE/D5W 1 GM PREMIX 1 gm in 50 mls @ 100 mls/hr 05/23/23 21:00 05/23/23 21:11 Rocephin 1 Gm/50 Ml D5w IV 05/26/23 20:59 100 mls/hr BEDTIME ELLIE Administration Insulin Human Lispro 0 unit 05/23/23 09:23 Insulin Lispro 100 Unit/Ml Vial SUBCUT PRN PRN Hyperglycemia Protocol Isosorbide Mononitrate 30 mg 05/23/23 09:00 05/24/23 08:38 Isosorbide Mononitrate 30 Mg Tab.Er.24h PO 30 mg DAILY ELLIE Administration Metoprolol Succinate 50 mg 05/23/23 09:00 05/24/23 08:38 Metoprolol Succinate 50 Mg Tab.Er.24h PO 50 mg DAILY ELLIE Administration Ondansetron HCl 4 mg 05/22/23 19:24 Ondansetron Hcl/Pf 4 Mg/2 Ml Sdv IVP Q6H PRN Nausea / Vomiting Primidone 250 mg 05/22/23 21:00 05/24/23 08:38 Primidone 50 Mg Tablet PO 250 mg TID ELLIE Administration Plan Plan: 1. Acute hypoxic respiratory failure in setting of CAP - Unchanged, Cont abx, duonebs, wean O2 when able. 2. Community acquired pneumonia, bilateral - Plan as above. Check legionella, strep pneumo, sputum culture. BC prelim negative. Procal trending down. 3. NAILA, stage I - Improved, continue gentle hydration. 4. Elevated liver enzymes - Worsening, likely in setting of infection. Continue to trend. Checking liver ultrasound 5. DMT2 - Hold metformin. Accuchecks ordered. Mild humalog sliding scale. 6. Hypertension - Hold losartan/HCTZ due to NAILA. 7. Hyperlipidemia - Holding statin due to worsening lfts 8. Sleep apnea - recommend sleep study upon discharge due to O2 sat dropping at rest, reports he had one ordered but never completed it and is unsure he wants to do that at this time DVT Prophylaxis: Lovenox Review Statement Review Statement: I have personally discussed and reviewed the patient's visit/currently labs/imaging/decision making with Dr. Starks, my supervising attending. Greater that 50 minutes spent with patient, 50% of the time spent with this p atient was devoted to counseling and coordination of care.
[2023-05-24] MEDS: FLOMAX PO SCH (10:37)
[2023-05-24] MEDS: ROBITUSSIN DM SYRUP PO PRN ×2 (14:49→22:02)
[2023-05-24] MEDS: TESSALON PERLES PO PRN ×2 (14:49→22:02)
[2023-05-24] MEDS: LIPITOR PO SCH (20:37)
[2023-05-24] MEDS: ROCEPHIN 1 GM/50 ML D5W 1 GM/50 ML BAG IV SCH (20:37)
[2023-05-24] MEDS: HUMALOG SUBCUT PRN (20:37)
[2023-05-24] MEDS: ZITHROMAX 500 MG in SODIUM CHLORIDE 250 ML IV SCH (21:10)
[2023-05-25 05:17] LABS: BASOPHILS % (AUTO) 0.2 % (0.0-3.0); EOSINOPHILS # (AUTO) 0.1 K/ul (0.0-0.7); EOSINOPHILS % (AUTO) 0.6 % (0.0-7.0); HEMATOCRIT 34.3 % (42.0-52.0); HEMOGLOBIN 10.7 g/dl (14.0-18.0); IMMATURE GRANULOCYTE # (AUTO) 0.1 (0.0-1.0); LYMPHOCYTES # (AUTO) 0.8 K/uL (0.60-3.4); LYMPHOCYTES % (AUTO) 6.1 (10.0-50.0); MEAN CORPUSCULAR HGB CONC 31.2 (31.8-35.4); MEAN CORPUSCULAR VOLUME 99.4 fl (80.0-94.0); MONOCYTES # (AUTO) 0.9 K/uL (0.4-2.0); MONOCYTES % (AUTO) 6.6 (0-10); NEUTROPHILS # (AUTO) 11.4 K/ul (2.0-6.9); NEUTROPHILS % (AUTO) 85.5 % (42.2-75.2); PLATELET COUNT 215 10^3/uL (140-440); RDW COEFFICIENT OF VARIATION 13.8 % (11.6-14.8); RED BLOOD COUNT 3.45 10^6/ul (4.70-6.10); WHITE BLOOD COUNT 13.34 K/ul (4.2-10.2)
[2023-05-25 05:42] LABS: ALBUMIN 2.9 g/dL (3.5-5.0); BILIRUBIN,TOTAL 0.2 mg/dL (0.2-1.3); CALCIUM 8.3 mg/dL (8.4-10.2); CREATININE 1.3 mg/dL (0.60-1.10); POTASSIUM 4.2 mmol/L (3.5-5.1); TOTAL PROTEIN 6.4 g/dL (6.3-8.2)
[2023-05-25] MEDS: FLOMAX PO SCH (08:23)
[2023-05-25] MEDS: IMDUR PO SCH (08:24)
[2023-05-25] MEDS: TOPROL XL PO SCH (08:24)
[2023-05-25] MEDS: ASPIRIN CHEWABLE PO SCH (08:24)
[2023-05-25] MEDS: MYSOLINE PO SCH ×3 (08:24→20:09)
[2023-05-25] MEDS: LOVENOX SUBCUT SCH (08:24)
[2023-05-25] MEDS: MUCINEX PO SCH ×2 (08:24→20:09)
[2023-05-25] MEDS: TESSALON PERLES PO PRN (08:24)
[2023-05-25] MEDS: ROBITUSSIN DM SYRUP PO PRN (08:24)
[2023-05-25] MEDS: LACTATED RINGERS 1,000 ML IV SCH (08:51)
[2023-05-25] MEDS ORDERED: LASIX IVP ONE (09:07)
[2023-05-25 09:30] LABS: ABG O2 HGB 91.3 % (95-100); ABG PH 7.37 (7.35-7.45); BEecf 4.2 (-2.0-3.0); COHb 1.8 (0.5-1.5); HCO3 29.5 (21-28); MetHb 1.3 (0-1.5); TCO2 31.1 (19-24); tHb 10.4 g/dl (11.7-17.4)
--- NOTE | 2023-05-25 10:30 | US ---
EXAM: ULTRASOUND ABDOMEN COMPLETE. HISTORY: Elevated LFTs TECHNIQUE: Ultrasound and limited doppler evaluation of the enitre abdomen was performed. COMPARISON: None FINDINGS: Evaluation is very limited due to body habitus and unable to follow directions. The liver is normal in echogenicity and measures 15.9 cm in length. The portal vein is patent. The gallbladder demonstrates demonstrates no stones or sludge. Gallbladder wall measures 0.2 cm. Common bile duct measures 0.4 cm in diameter. The pancreas is unremarkable. The aorta and IVC are unremar kable. The spleen is none identified. Urinary bladder demonstrates a Anderson catheter in place. There is no definitive abnormality. The right kidney measures 1.5 x 6.0 x 5.8 cm with cortical thickness of 1.7 cm. There is normal echo genicity and Doppler flow. There is no visualized stone, cyst or hydronephrosis. The left kidney measures 11.0 x 5.9 x 6.3 cm with renal cortical thickness of 1.7 cm. There is norm al echogenicity and color Doppler flow. There is no stone, cyst or hydronephrosis. IMPRESSION: Limited evaluation demonstrates no abnormality.
[2023-05-25] MEDS: DUONEB NEB PRN (10:36)
--- NOTE | 2023-05-25 11:18 | PCM.PROG ---
Date/Time Seen Date Seen by Provider: 05/25/23 Time Seen by Provider: 08:45 Provider Provider: J LUIS QUEEN, [facility] Chief Complaint Chief Complaint: PNEUMONIA, ACUTE RENAL FAILURE Subjective Subjective: Up to 5L on oxygen. Hands, face, and ankles swollen. Feels it is more difficult to breathe today. Objective Appearance: Positive Alert and Oriented x3 and Ill-Appearing Chest/Lungs: Positive Symmetrical With Equal Breath Sounds, Good Air Movement all 4 Lung [place] and Other (crackles throughout lung juárez) Heart: Positive RRR and Pulses Normal GI/: Positive Soft, Nontender, Bowel Sounds Normal and No Distention Musculoskeletal: Positive Not Examined Neurological: Positive Sensation Intact, Motor intact, Alert and Oriented Additional Findings: Generalized edema to face, arms, and bilateral lower extremities (+1-2 pitting). Vital Signs Vital Signs: Vital Signs: Last 24 Hours 05/24/23 13:00 05/24/23 14:00 05/24/23 14:00 Temperature 96.6 F L Temperature Source Oral Pulse Rate 70 Respiratory Rate 20 Blood Pressure 144/65 H Blood Pressure Mean 91 Blood Pressure Location Left Arm Blood Pressure Position O2 Sat by Pulse Oximetry 95 Oxygen Delivery Method Nasal Cannula Nasal Cannula Oxygen Flow Rate 3 3 Telemetry Type Remote Telemetry Telemetry Monitoring Continues Telemetry Heart Rate 65 Telemetry SPO2 95 EKG VA Interval 0.21 H EKG QRS Interval 0.04 L Telemetry Strip Reading SR with 1 AVB 05/24/23 19:00 05/24/23 19:10 05/24/23 20:00 Temperature Temperature Source Pulse Rate Respiratory Rate Blood Pressure Blood Pressure Mean Blood Pressure Location Blood Pressure Position O2 Sat by Pulse Oximetry Oxygen Delivery Method Nasal Cannula Nasal Cannula Oxygen Flow Rate 3 4 Telemetry Type Remote Telemetry Telemetry Monitoring Continues Telemetry Heart Rate 72 Telemetry SPO2 98 EKG VA Interval 0.31 H EKG QRS Interval 0.04 L Telemetry Strip Reading SR WITH 1ST DEGREE AVB 05/24/23 21:50 05/25/23 00:52 05/25/23 04:54 Temperature 98.7 F Temperature Source Temporal Artery Scan Pulse Rate 76 Respiratory Rate 20 Blood Pressure 168/74 H Blood Pressure Mean 105 Blood Pressure Location Left Arm Blood Pressure Position Supine O2 Sat by Pulse Oximetry 96 97 Oxygen Delivery Method Nasal Cannula Nasal Cannula Oxygen Flow Rate 4 4 Telemetry Type Remote Telemetry Telemetry Monitoring Continues Telemetry Heart Rate 71 Telemetry SPO2 91 L EKG VA Interval 0.29 H EKG QRS Interval 0.05 L Telemetry Strip Reading SR WITH 1ST DEGREE AVB 05/25/23 05:59 05/25/23 07:00 05/25/23 08:00 Temperature 98.7 F Temperature Source Temporal Artery Scan Pulse Rate 93 Respiratory Rate 20 Blood Pressure 176/75 H Blood Pressure Mean 108 Blood Pressure Location Left Arm Blood Pressure Position Supine O2 Sat by Pulse Oximetry 89 L Oxygen Delivery Method Nasal Cannula Nasal Cannula Oxygen Flow Rate 5 5 Telemetry Type Remote Telemetry Telemetry Monitoring Continues Telemetry Heart Rate 103 H Telemetry SPO2 89 L EKG VA Interval 0.25 H EKG QRS Interval 0.04 L Telemetry Strip Reading SR with 1 AVB 05/25/23 09:48 Temperature Temperature Source Pulse Rate Respiratory Rate Blood Pressure Blood Pressure Mean Blood Pressure Location Blood Pressure Position O2 Sat by Pulse Oximetry 91 L Oxygen Delivery Method Nasal Cannula Oxygen Flow Rate 5 Telemetry Type Telemetry Monitoring Telemetry Heart Rate Telemetry SPO2 EKG VA Interval EKG QRS Interval Telemetry Strip Reading Lab Results Lab Results: Lab Results: Last 24 Hours 05/25/23 05/25/23 05/24/23 09:14 05:03 19:25 WBC 13.34 H RBC 3.45 L Hgb 10.7 L Hct 34.3 L MCV 99.4 H MCH 31.0 MCHC 31.2 L RDW Coeff of Shaun 13.8 Plt Count 215 Immature Gran % (Auto) 1.0 Neut % (Auto) 85.5 H Lymph % (Auto) 6.1 L [place] % (Auto) 6.6 Eos % (Auto) 0.6 Baso % (Auto) 0.2 Neut # (Auto) 11.4 H Lymph # (Auto) 0.8 [place] # (Auto) 0.9 Eos # (Auto) 0.1 Baso # (Auto) 0.0 Immature Gran # (Auto) 0.1 Puncture Site [employer] Excess 4.2 H O2 Saturation 91.0 L ABG pH 7.37 ABG pCO2 51.0 H ABG pO2 63.0 L ABG HCO3 29.5 H ABG Total CO2 31.1 H [place] Test Pos Hemoglobin 1.3 Oxyhemoglobin 91.3 L Carboxyhemoglobin 1.8 H Total Hemoglobin 10.4 L O2 Delivery Device Cannula Oxygen Liter Flow 5.00 Sodium 139.0 Potassium 4.20 Chloride 103.0 Carbon Dioxide 30.0 Anion Gap 10.20 BUN 30.0 H Creatinine 1.30 H Estimated GFR (MDRD) 54.00 BUN/Creatinine Ratio 23.07 Glucose 132.0 H Calcium 8.30 L Total Bilirubin 0.20 AST 176.0 H ALT 48.0 Alkaline Phosphatase 162.0 H NT-Pro-B Natriuret Pep 2210 H Total Protein 6.40 Albumin 2.90 L Globulin 3.50 Albumin/Globulin Ratio 0.82 Procalcitonin 0.27 H 0.90 H Additional Comments Additional Comments: I have independently reviewed and interpreted the labs/EKGs/imaging ordered during this hospital stay. I have reviewed outside records that are available in our EMR that pertain to medical stay including imaging/notes/labs from previous visits. Active Medications Active Medications: Medications Generic Name Dose Route Start Last Admin Trade Name Freq PRN Reason Stop Dose Admin Acetaminophen 650 mg 05/22/23 19:24 Acetaminophen 325 Mg Tablet PO Q4H PRN Mild Pain Albuterol/Ipratropium 3 ml 05/22/23 19:28 05/25/23 10:36 Ipratropium/Albuterol Vial.Neb NEB 3 ml RTQ6H PRN Administration Wheezing Allopurinol 100 mg 05/22/23 21:29 05/23/23 08:15 Allopurinol 100 Mg Tablet PO 100 mg DAILY PRN Administration MODERATE PAIN Aspirin 81 mg 05/23/23 07:30 05/25/23 08:24 Aspirin 81 Mg Tab.Chew PO 81 mg DAILYWM2 ELLIE Administration Atorvastatin Calcium 40 mg 05/22/23 22:00 05/24/23 20:37 Atorvastatin Calcium 20 Mg Tablet PO 40 mg BEDTIME ELLIE Administration Benzonatate 100 mg 05/22/23 21:38 05/25/23 08:24 Benzonatate 100 Mg Capsule PO 100 mg TID PRN Administration Cough Enoxaparin Sodium 40 mg 05/23/23 09:25 05/25/23 08:24 Enoxaparin Sodium 40 Mg/0.4 Ml Syr SUBCUT 40 mg DAILY ELLIE Administration Guaifenesin 600 mg 05/23/23 09:00 05/25/23 08:24 Guaifenesin 600 Mg Tablet.Er PO 600 mg Q12HR ELLIE Administration Guaifenesin/Dextromethorphan 5 ml 05/22/23 21:38 05/25/23 08:24 Guaifenesin/Dextromethorphan 200/20 Mg/10 Ml Cup PO 5 ml Q4H PRN Administration Cough Azithromycin 500 mg/ Sodium 250 mls @ 250 mls/hr 05/23/23 21:00 05/24/23 21:10 Chloride IV 05/25/23 20:59 250 mls/hr BEDTIME ELLIE Administration CEFTRIAXONE/D5W 1 GM PREMIX 1 gm in 50 mls @ 100 mls/hr 05/23/23 21:00 05/24/23 20:37 Rocephin 1 Gm/50 Ml D5w IV 05/26/23 20:59 100 mls/hr BEDTIME ELLIE Administration Insulin Human Lispro 0 unit 05/23/23 09:23 05/24/23 20:37 Insulin Lispro 100 Unit/Ml Vial SUBCUT 4 unit PRN PRN Administration Hyperglycemia Protocol Isosorbide Mononitrate 30 mg 05/23/23 09:00 05/25/23 08:24 Isosorbide Mononitrate 30 Mg Tab.Er.24h PO 30 mg DAILY ELLIE Administration Metoprolol Succinate 50 mg 05/23/23 09:00 05/25/23 08:24 Metoprolol Succinate 50 Mg Tab.Er.24h PO 50 mg DAILY ELLIE Administration Ondansetron HCl 4 mg 05/22/23 19:24 Ondansetron Hcl/Pf 4 Mg/2 Ml Sdv IVP Q6H PRN Nausea / Vomiting Primidone 250 mg 05/22/23 21:00 05/25/23 08:24 Primidone 50 Mg Tablet PO 250 mg TID ELLIE Administration Tamsulosin HCl 0.4 mg 05/24/23 10:20 05/25/23 08:23 Tamsulosin Hcl 0.4 Mg Cap.Er.24h PO 0.4 mg DAILY ELLIE Administration Plan Plan: 1. Acute hypoxic respiratory failure in setting of CAP - Worsening, Cont abx, duonebs, wean O2 when able. 2. Community acquired pneumonia, bilateral - Plan as above. Check legionella, strep pneumo, sputum culture. BC prelim negative x 48 hours. Procal trending down. 3. NAILA secondary to urinary retention - Improved, yanes in place, giving lasix due to overload 4. Acute Transaminitis - Improving, liver US negative, trend and monitor 5. CHF - no prev. diagnosis, BNP high, SOB with visible edema, lasix 20 mg x1 - will gently diurese due to NAILA, echo upon discharge 6. DMT2 - Hold metformin. Accuchecks ordered. Mild humalog sliding scale. 7. Hypertension - Hold losartan/HCTZ due to NAILA. 8. Hyperlipidemia - Holding statin due to worsening lfts 9. Sleep apnea - continuous O2 monitoring in place, will setup with DME at discharge DVT Prophylaxis: Lovenox Review Statement Review Statement: I have personally discussed and reviewed the patient's visit/currently labs/imaging/decision making with Dr. Starks, my supervising attending. Greater that 50 minutes spent with patient, 50% of the time spent with this patient was devoted to counseling and coordination of care.
[2023-05-25] MEDS: LASIX IVP SCH (16:43)
[2023-05-25] MEDS: HUMALOG SUBCUT PRN (17:00)
[2023-05-25] MEDS: ROCEPHIN 1 GM/50 ML D5W 1 GM/50 ML BAG IV SCH (20:09)
[2023-05-25] MEDS: LIPITOR PO SCH (20:09)
[2023-05-26] MEDS: DUONEB NEB PRN (00:33)
[2023-05-26] MEDS: LASIX IVP SCH ×2 (05:16→17:46)
[2023-05-26 05:35] LABS: BASOPHILS # (AUTO) 0.1 K/uL (0-0.2); BASOPHILS % (AUTO) 0.4 % (0.0-3.0); EOSINOPHILS # (AUTO) 0.1 K/ul (0.0-0.7); EOSINOPHILS % (AUTO) 0.7 % (0.0-7.0); HEMOGLOBIN 10.1 g/dl (14.0-18.0); IMMATURE GRANULOCYTE # (AUTO) 0.1 (0.0-1.0); IMMATURE GRANULOCYTE % (AUTO) 0.4 % (0.0-5.0); LYMPHOCYTES # (AUTO) 0.9 K/uL (0.60-3.4); LYMPHOCYTES % (AUTO) 6.7 (10.0-50.0); MEAN CORPUSCULAR HEMOGLOBIN 30.5 pg (27.0-31.0); MEAN CORPUSCULAR HGB CONC 30.6 (31.8-35.4); MEAN CORPUSCULAR VOLUME 99.7 fl (80.0-94.0); MONOCYTES % (AUTO) 6.9 (0-10); NEUTROPHILS # (AUTO) 11.7 K/ul (2.0-6.9); NEUTROPHILS % (AUTO) 84.9 % (42.2-75.2); PLATELET COUNT 204 10^3/uL (140-440); RDW COEFFICIENT OF VARIATION 13.6 % (11.6-14.8); RED BLOOD COUNT 3.31 10^6/ul (4.70-6.10); WHITE BLOOD COUNT 13.75 K/ul (4.2-10.2)
[2023-05-26 06:00] LABS: ALANINE AMINOTRANSFERASE 34.9 U/L (0-50); ALBUMIN 2.92 g/dL (3.5-5.0); ALKALINE PHOSPHATASE 137.1 U/L (56-119); ASPARTATE AMINO TRANSFERASE 131.4 U/L (17-59); BILIRUBIN,TOTAL 0.39 mg/dL (0.2-1.3); CALCIUM 8.52 mg/dL (8.4-10.2); CARBON DIOXIDE 35.9 mmol/L (22-30.0); CHLORIDE 102.7 mmol/L (98-107); CREATININE 1.68 mg/dL (0.60-1.10); GLUCOSE 134.8 mg/dL (74-106); POTASSIUM 3.87 mmol/L (3.5-5.1); SODIUM 140.6 mmol/L (134.5-145); TOTAL PROTEIN 6.52 g/dL (6.3-8.2)
[2023-05-26] MEDS: MUCINEX PO SCH ×2 (08:37→20:00)
[2023-05-26] MEDS: MYSOLINE PO SCH ×3 (08:37→20:00)
[2023-05-26] MEDS: ASPIRIN CHEWABLE PO SCH (08:37)
[2023-05-26] MEDS: FLOMAX PO SCH (08:37)
[2023-05-26] MEDS: TOPROL XL PO SCH (08:38)
[2023-05-26] MEDS: IMDUR PO SCH (08:38)
[2023-05-26] MEDS: LOVENOX SUBCUT SCH (08:39)
[2023-05-26 09:28] LABS: BILIRUBIN,URINE Negative (NEGATIVE); CLARITY,URINE Slightly (CLEAR); COLOR,URINE Yellow (YELLOW); GLUCOSE, URINE (UA) Negative (NEGATIVE); KETONES,URINE Negative (NEGATIVE); LEUKOCYTE ESTERASE ,URINE Trace (NEGATIVE); NITRITE,URINE Negative (NEGATIVE); PROTEIN,URINE 3+ (NEGATIVE); URINE, BLOOD 3+ (NEGATIVE); UROBILINOGEN,URINE 0.2 (0.2)
[2023-05-26 09:43] LABS: SQUAMOUS EPITHELIAL CELL,UR 0-2 (0-5); URINE RBC, MICROSCOPIC 30-50 (0-2)
[2023-05-26 09:44] LABS: AMORPHOUS SEDIMENT,UR 2+ (NOT PRESENT); BACTERIA,URINE 1+ (NOT PRESENT)
--- NOTE | 2023-05-26 10:36 | PCM.PROG ---
Date/Time Seen Date Seen by Provider: 05/26/23 Time Seen by Provider: 08:30 Provider Provider: J LUIS QUEEN, [facility] Chief Complaint Chief Complaint: PNEUMONIA, ACUTE RENAL FAILURE Subjective Subjective: Weaned down from 5L O2 to 4L yesterday afternoon. Lethargic. Falling asleep mid-conversation. Conversing appropriately and oriented. Feels he is breathing better today but reports being tired. Objective Appearance: Positive No Apparent Distress and Ill-Appearing Chest/Lungs: Positive Symmetrical With Equal Breath Sounds, Good Air Movement all 4 Lung Juárez and Other (crackles LLL) Heart: Positive RRR and Pulses Normal GI/: Positive Soft, Nontender, Bowel Sounds Normal and No Distention Musculoskeletal: Positive Not Examined Neurological: Positive Sensation Intact, Motor intact, Reflexes Intact, Oriented and Other (lethargic) Additional Findings: generalized weakness, +1-2 nonpitting edema BLE Vital Signs Vital Signs: Vital Signs: Last 24 Hours 05/25/23 13:00 05/25/23 14:00 05/25/23 14:00 Temperature 98.1 F Temperature Source Temporal Artery Scan Pulse Rate 88 Respiratory Rate 20 Blood Pressure 105/59 L Blood Pressure Mean 74 Blood Pressure Location Left Arm Blood Pressure Position Sitting O2 Sat by Pulse Oximetry 94 L 95 Oxygen Delivery Method Nasal Cannula Nasal Cannula Oxygen Flow Rate 5 5 Telemetry Type Remote Telemetry Telemetry Monitoring Continues Telemetry Heart Rate 90 Telemetry SPO2 99 EKG DE Interval 0.20 EKG QRS Interval 0.06 Telemetry Strip Reading SR with 1AVB 05/25/23 16:00 05/25/23 19:00 05/25/23 19:21 Temperature Temperature Source Pulse Rate Respiratory Rate Blood Pressure Blood Pressure Mean Blood Pressure Location Blood Pressure Position O2 Sat by Pulse Oximetry 100 93 L Oxygen Delivery Method Nasal Cannula Nasal Cannula Oxygen Flow Rate 5 4 Telemetry Type Remote Telemetry Telemetry Monitoring Continues Telemetry Heart Rate 71 Telemetry SPO2 93 EKG DE Interval 0.24 H EKG QRS Interval 0.07 Telemetry Strip Reading SR W/ 1ST DEGREE AVB 05/25/23 20:25 05/25/23 20:50 05/26/23 01:00 Temperature 97.1 F L Temperature Source Temporal Artery Scan Pulse Rate 73 Respiratory Rate 15 Blood Pressure 132/69 Blood Pressure Mean 90 Blood Pressure Location Left Arm Blood Pressure Position Supine O2 Sat by Pulse Oximetry 97 Oxygen Delivery Method Nasal Cannula Nasal Cannula Oxygen Flow Rate 4 4 Telemetry Type Remote Telemetry Telemetry Monitoring Continues Telemetry Heart Rate 72 Telemetry SPO2 94 EKG DE Interval 0.23 H EKG QRS Interval 0.08 Telemetry Strip Reading SR W/ 1ST DEGREE AVB 05/26/23 05:07 05/26/23 05:12 05/26/23 07:00 Temperature 97.9 F Temperature Source Temporal Artery Scan Pulse Rate 75 Respiratory Rate 18 Blood Pressure 142/69 H Blood Pressure Mean 93 Blood Pressure Location Left Arm Blood Pressure Position Supine O2 Sat by Pulse Oximetry 95 96 Oxygen Delivery Method Nasal Cannula Nasal Cannula Oxygen Flow Rate 4 4 Telemetry Type Remote Telemetry Telemetry Monitoring Continues Telemetry Heart Rate 77 Telemetry SPO2 94 EKG DE Interval 0.24 H EKG QRS Interval 0.11 H Telemetry Strip Reading SR with 1st Degree AVB and BBB 05/26/23 07:45 05/26/23 09:54 Temperature Temperature Source Pulse Rate Respiratory Rate Blood Pressure Blood Pressure Mean Blood Pressure Location Blood Pressure Position O2 Sat by Pulse Oximetry Oxygen Delivery Method Nasal Cannula Nasal Cannula Oxygen Flow Rate 4 Telemetry Type Telemetry Monitoring Telemetry Heart Rate Telemetry SPO2 EKG DE Interval EKG QRS Interval Telemetry Strip Reading Lab Results Lab Results: Lab Results: Last 24 Hours 05/26/23 05/26/23 09:10 04:57 WBC 13.75 H RBC 3.31 L Hgb 10.1 L Hct 33.0 L MCV 99.7 H MCH 30.5 MCHC 30.6 L RDW Coeff of Shaun 13.6 Plt Count 204 Immature Gran % (Auto) 0.4 Neut % (Auto) 84.9 H Lymph % (Auto) 6.7 L [place] % (Auto) 6.9 Eos % (Auto) 0.7 Baso % (Auto) 0.4 Neut # (Auto) 11.7 H Lymph # (Auto) 0.9 [place] # (Auto) 1.0 Eos # (Auto) 0.1 Baso # (Auto) 0.1 Immature Gran # (Auto) 0.1 Sodium 140.6 Potassium 3.87 Chloride 102.7 Carbon Dioxide 35.9 H Anion Gap 5.87 BUN 32.0 H Creatinine 1.68 H Estimated GFR (MDRD) 40.00 BUN/Creatinine Ratio 19.04 Glucose 134.8 H Calcium 8.52 Total Bilirubin 0.39 AST 131.4 H D ALT 34.9 Alkaline Phosphatase 137.1 H Total Protein 6.52 Albumin 2.92 L Globulin 3.60 Albumin/Globulin Ratio 0.81 Procalcitonin 0.45 H Urine Color Yellow Urine Clarity Slightly Urine pH 5.0 Ur Specific [place] 1.025 Urine Protein 3+ H Urine Glucose (UA) Negative Urine Ketones Negative Urine Blood 3+ H Urine Nitrite Negative Urine Bilirubin Negative Urine Urobilinogen 0.2 Ur Leukocyte Esterase Trace H Urine Microscopic RBC 30-50 Urine Microscopic WBC 10-20 Ur Squamous Epith Cells 0-2 Amorphous Sediment 2+ Urine Bacteria 1+ Granular Casts 2-5 Additional Comments Additional Comments: I have independently reviewed and interpreted the labs/EKGs/imaging ordered during this hospital stay. I have reviewed outside records that are available in our EMR that pertain to medical stay including imaging/notes/labs from previous visits. Active Medications Active Medications: Medications Generic Name Dose Route Start Last Admin Trade Name Freq PRN Reason Stop Dose Admin Acetaminophen 650 mg 05/22/23 19:24 Acetaminophen 325 Mg Tablet PO Q4H PRN Mild Pain Albuterol/Ipratropium 3 ml 05/22/23 19:28 05/26/23 00:33 Ipratropium/Albuterol Vial.Neb NEB 3 ml RTQ6H PRN Administration Wheezing Allopurinol 100 mg 05/22/23 21:29 05/23/23 08:15 Allopurinol 100 Mg Tablet PO 100 mg DAILY PRN Administration MODERATE PAIN Aspirin 81 mg 05/23/23 07:30 05/26/23 08:37 Aspirin 81 Mg Tab.Chew PO 81 mg DAILYWM2 ELLIE Administration Atorvastatin Calcium 40 mg 05/22/23 22:00 05/25/23 20:09 Atorvastatin Calcium 20 Mg Tablet PO 40 mg BEDTIME ELLIE Administration Benzonatate 100 mg 05/22/23 21:38 05/25/23 08:24 Benzonatate 100 Mg Capsule PO 100 mg TID PRN Administration Cough Enoxaparin Sodium 40 mg 05/23/23 09:25 05/26/23 08:39 Enoxaparin Sodium 40 Mg/0.4 Ml Syr SUBCUT 40 mg DAILY ELLIE Administration Furosemide 20 mg 05/25/23 17:00 05/26/23 05:16 Furosemide Inj 20 Mg/2 Ml Vial IVP 20 mg BIDAC2 ELLIE Administration Guaifenesin 600 mg 05/23/23 09:00 05/26/23 08:37 Guaifenesin 600 Mg Tablet.Er PO 600 mg Q12HR ELLIE Administration Guaifenesin/Dextromethorphan 5 ml 05/22/23 21:38 05/25/23 08:24 Guaifenesin/Dextromethorphan 200/20 Mg/10 Ml Cup PO 5 ml Q4H PRN Administration Cough CEFTRIAXONE/D5W 1 GM PREMIX 1 gm in 50 mls @ 100 mls/hr 05/23/23 21:00 05/25/23 20:09 Rocephin 1 Gm/50 Ml D5w IV 05/26/23 20:59 100 mls/hr BEDTIME ELLIE Administration Insulin Human Lispro 0 unit 05/23/23 09:23 05/25/23 17:00 Insulin Lispro 100 Unit/Ml Vial SUBCUT 2 unit PRN PRN Administration Hyperglycemia Protocol Isosorbide Mononitrate 30 mg 05/23/23 09:00 05/26/23 08:38 Isosorbide Mononitrate 30 Mg Tab.Er.24h PO 30 mg DAILY ELLIE Administration Metoprolol Succinate 50 mg 05/23/23 09:00 05/26/23 08:38 Metoprolol Succinate 50 Mg Tab.Er.24h PO 50 mg DAILY ELLIE Administration Ondansetron HCl 4 mg 05/22/23 19:24 Ondansetron Hcl/Pf 4 Mg/2 Ml Sdv IVP Q6H PRN Nausea / Vomiting Primidone 250 mg 05/22/23 21:00 05/26/23 08:37 Primidone 50 Mg Tablet PO 250 mg TID ELLIE Administration Tamsulosin HCl 0.4 mg 05/24/23 10:20 05/26/23 08:37 Tamsulosin Hcl 0.4 Mg Cap.Er.24h PO 0.4 mg DAILY ELLIE Administration Plan Plan: 1. Acute hypoxic respiratory failure in setting of CAP - Unchanged, continuing to require 4L of oxygen, lethargic today, checking ABG and CT chest, Cont abx, duonebs, wean O2 when able. 2. Community acquired pneumonia, bilateral - Plan as above. Check legionella, strep pneumo, sputum culture. BC prelim negative x 48 hours. Procal trending down. 3. NAILA secondary to urinary retention/obstructive uropathy - Improved, yanes in place, giving lasix due to overload, Dr. Ardon- urology on discharge 4. Acute Transaminitis - Improving, liver US negative, trend and monitor 5. Acute Metabolic Encephalopathy - UA completed, sent to culture but no obvious signs of infection, checking abg to r/o hypercapnia, avoid neurologically altering agents 5. CHF - Improving, diuresing well; lasix 20 mg Q12H, no prev. diagnosis, BNP high, echo upon discharge 6. DMT2 - Hold metformin. Accuchecks ordered. Mild humalog sliding scale. 7. Hypertension - Hold losartan/HCTZ due to NAILA. 8. Hyperlipidemia - Holding statin due to worsening lfts 9. Sleep apnea - continuous O2 monitoring in place, will setup with DME at discharge DVT Prophylaxis: Lovenox Review Statement Review Statement: I have personally discussed and reviewed the patient's visit/currently labs/imaging/decision making with Dr. Starks, my supervising attending. Greater that 50 minutes spent with patient, 50% of the time spent with this patient was devoted to counseling and coordination of care. Additional Comments Additional Comments: ABG obtained and showed patient retaining CO2. Bipap ordered and initiated. Repeat ABG at 1300. CT chest ordered due to continued worsening condition. Showing bilateral pneumonia, small pleural effusions, lymphadenopathy, and cardiomegaly. Changed antibiotics to Levaquin. Will discuss condition with family.
[2023-05-26 10:42] LABS: ABG O2 HGB 92.7 % (95-100); ABG PH 7.36 (7.35-7.45); BEecf 10.2 (-2.0-3.0); HCO3 35.6 (21-28); MetHb 0.8 (0-1.5); TCO2 37.5 (19-24); sO2 91.9 % (94-98); tHb 10.4 g/dl (11.7-17.4)
--- NOTE | 2023-05-26 11:25 | RS.PTINEVL ---
Subjective Patient information Date of Evaluation: 05/26/23 Date of Arrival on Unit: 05/22/23 Admitted From:: Home Diagnosis: acute hypoxic resp failure, pneumonia Usual Living Arrangement: With Spouse Living Arrangement Comments: Home Environment: House, Stairs (few) (1) and No rail Medical History: Hypertension and Diabetes Medical History Comments:: CAD, BPH LATEX ALLERGY?: No Surgical History: CABG Surgical History Comments:: appey Medications: see chart Subjective Information/ Patient Comments:: pt states that he was independent prior to getting sick. States he lives with his of 54 years. Level of function Prior to this admission, the patient could do the following:: Independent Selfcare, Independent ADL's, Independent Ambulation, Perform Dish Person/Cooking, Drive and Participated in Social Activities Outside home Abilities prior to this admission: pt amb without AD, did not use O2 at home Current Level of Function: Partially Dependent Current Equipment Used at Home: accu check machine Pain Assessement Location B knees: Description: Aching Pain Behavior: Moaning and Facial Grimacing Pain Alleviating Factors: Position Change Interventions Objective Patient Orientation: Person and Place Current Interventions: IV's, Oxygen (4 liters per NC), Telemetry and Anderson Catheter Observation: pt O2 sat dropped to 75% sitting and standing. pt did recover to 91% after returning to supine with cues for breathing in through his nose. Respiratory came in at end of treatment to place pt on BIPAP due to elevated CO2 on blood gases. Range of Motion ROM Right Upper Extremity AROM: WFL's Left Upper Extremity AROM: WFL's Right Lower Extremity AROM: WFL's Left Lower Extremity AROM: WFL's Muscle Strength Muscle Strength Right Upper Extremity: Mild Weakness (grossly 4- to 4/5) Left Upper Extremity: Mild Weakness (grossly 4- to 4/5) Right Lower Extremity: Mild Weakness (hip flex 4-/5, knee flex 4-/5, ext 4-/5, ankle DF/PF 4/5) Left Lower Extremity: Mild Weakness (hip flex 4-/5, knee flex 4-/5, ext 4-/5, ankle DF/PF 4/5) Sensation Sensation Right Upper Extremity: Intact/Normal Left Upper Extremity: Intact/Normal Right Lower Extremity: Intact/Normal Left Lower Extremity: Intact/Normal Palpation Palpation Findings: None/Normal Coordination Tests Bilateral: Finger to Nose: Mild Deviation Balance Sitting Balance and Reactions Static Sitting Balance: Poor Dynamic Sitting Balance: Poor Sitting Equilibrium Reactions: Delayed Left and Delayed Right Sitting Protective Reactions: Delayed Left and Delayed Right Standing Balance and Reactions Static Standing Balance: Poor Dynamic Standing Balance: Poor Comments Balance Assessment Comments: pt leans to left in sitting, is able to maintain sitting balance approx 30sec without challenges Functional Mobility Bed Mobility Rolling R/L: Mod Assist and 1 person assist Scooting: Max Assist and 2 person assist Supine to Sit: Mod Assist, 1 person assist and 2 person assist Sit to Supine: Max Assist and 2 person assist Comments:: pt leans to L in sitting Transfers Sit to Stand: Mod Assist, Max Assist and 2 person assist Stand to Sit: Mod Assist, Max Assist and 2 person assist Comments:: pt stood x 1 with mod x 2. While standing knees buckling. pt stood approx 30-45 seconds. Stood 2nd time with max of 2 unable to bear weight and placed back on side of bed. pt O2 sats dropped to 75 during treatment. Safety Awareness Safety Awareness: Poor CLARIBEL INDEX SCORE: n/a Treatment time Units charged ADL: 1 (theract ) Time with patient Length of Evaluation: 19 Total treatment time: 32 Patient Education Education Patient Education: Activity Modification and Education of Plan of Care Teaching Recipient: Patient Teaching Methods: Discussion Comments: discussion regarding POC. Discussion regarding pt performance with Corbin LOPEZ Assessment Assessment Problem List:: Decreased level of function, Requires training/education, Decreased safety/Risk of falls, Weakness and Cognitive status limits abilities Rehab Potential: Fair Further Therapy Indicated?: Yes Candidate for Swing Bed for Therapy Services?: Feel pt may be a candidate for swing bed when medically stable due to pt was independent prior to admit without AD. Evaluation Complexity: HISTORY: Medium, EXAM OF BODY SYSTEMS: Medium, CLINICAL PRESENTATION: Medium and CLINICAL DECISION MAKING: Medium Patient's Goal(s): "go home with my " Short Term Goals GOAL #1: pt demonstrate rolling with bedrails min x 1 Goal to be met by: 05/28/23 GOAL #2: Transfer sup to/from sit min x 1 Goal to be met by: 05/28/23 GOAL #3: sit to/from stand min x 2 Goal to be met by: 05/28/23 GOAL #4: pt able to amb 25ft w rwx and O2 with min x 1-2 Goal to be met by: 05/28/23 GOAL #5: Improve BLE strength 4 to 4+/5 Goal to be met by: 05/29/23 Power Reactor Supervisor Goals GOAL #1: pt transfer sup to/from sit to/from stand min x 1 Goal to be met by: 05/31/23 GOAL #2: pt amb 50ft with rwx and O2 with min x 1 Goal to be met by: 05/31/23 GOAL #3: Ascend/descend 1 steps without HR min x 1 Goal to be met by: 05/31/23 Plan Plan of Care: Therapeutic EX and Therapeutic Activity Other:: gait training Frequency of Treatment: 1-2 X day, as tolerated Duration of Treatment: 5 days Anticipated Discharge Destination: undetermined Treatment Diagnosis (ICD 10 Codes): weakness M62.81 impaired balance R26,81 gait difficulty R 26.2 fall risk Has the Physician been added for Co-signature?: Yes
--- NOTE | 2023-05-26 11:58 | CT ---
EXAM: CT CHEST WITHOUT CONTRAST. HISTORY: Shortness of breath. COMPARISON: Radiograph 05/22/2023. TECHNIQUE: Multiple axial images of the chest were obtained without intravenous contrast. Images we re reformatted in the sagittal and coronal planes. FINDINGS: There has been prior sternotomy. Heart is enlarged. Extensive coronary artery calcificat ions present. Aortic calcifications present. There is no pericardial effusion. Multiple calcified mediastinal and hilar lymph nodes present. A subcarinal lymph node measures 1.4 c m short axis on axial image 29. Limited assessment for lymphadenopathy without contrast. Small bilateral pleural effusions present. Multifocal consolidation and ground-glass opacities prese nt throughout both lungs. There is no pneumothorax. Limited images of the upper abdomen demonstrate mild gallbladder distension without wall thickening o r adjacent inflammation. Degenerative changes present in the spine along with diffuse idiopathic skeletal hyperostosis. IMPRESSION: 1. Bilateral pneumonia and small pleural effusions. 2. Cardiomegaly and atherosclerosis. 3. Mediastinal lymphadenopathy which may be due to #1 above. 4. Evidence of prior granulomatous disease. 5. Follow-up in 4 to 6 weeks recommended to confirm resolution. All CT scans are performed using dose optimization techniques as appropriate to the performed exam an d include at least one of the following: Automated exposure control, adjustment of the mA and/or kV according t o size, and the use of iterative reconstruction technique.
[2023-05-26] MEDS: LEVAQUIN 750 MG/150 ML D5W 750 MG/150 ML BAG IV SCH (12:57)
[2023-05-26] MEDS: SOLU-MEDROL 40 MG IVP SCH ×2 (12:57→20:15)
[2023-05-26 13:36] LABS: ABG O2 HGB 94.7 % (95-100); ABG PH 7.42 (7.35-7.45); BEecf 9.9 (-2.0-3.0); COHb 1.9 (0.5-1.5); HCO3 34.4 (21-28); MetHb 0.8 (0-1.5); sO2 95.1 % (94-98); tHb 9.3 g/dl (11.7-17.4)
[2023-05-26] MEDS: PULMICORT 1 MG/2 ML NEB SCH ×2 (18:00→23:10)
--- NOTE | 2023-05-26 19:34 | RS.OTINEVL ---
Subjective Patient information Date of Evaluation: 05/26/23 Date of Arrival on Unit: 05/22/23 Admitted From:: Home Diagnosis: Pneumonia, PRECAUTIONS: Fall risk, Legs buckled Usual Living Arrangement: With Spouse Home Environment: House, Stairs (few) (1) and No rail Medical History: Hypertension and Diabetes Medical History Comments:: CAD, BPH LATEX ALLERGY?: No Surgical History: CABG Surgical History Comments:: appey Medications: see chart Level of function Prior to this admission, the patient could do the following:: Independent Selfcare, Independent ADL's, Independent Ambulation, Perform Field Marketing Director/Cooking, Drive and Participated in Social Activities Outside home Abilities prior to this admission: Pt was independent with living at home with his . Pt did not wear O2. Pt did not use an AD. Pt was driving and Independent with ADLs. Current Level of Function: Partially Dependent Current Equipment Used at Home: accu check machine Interventions Objective Patient Orientation: Person Current Interventions: IV's, Oxygen and Anderson Catheter Observation: Pt very weak and not able to stand and hold himself up. Pt sat EOB with assistance. Interventions ROM Right Upper Extremity AROM: Slight limitation Left Upper Extremity AROM: Slight limitation Strength Right Upper Extremity: Moderate Weakness Left Upper Extremity: Moderate Weakness Sensation Right Upper Extremity: Intact/Normal Left Upper Extremity: Intact/Normal Balance Sitting Balance Static Sitting Balance: Poor Dynamic Sitting Balance: Poor Standing Balance Static Standing Balance: Poor Dynamic Standing Balance: Poor ADL Skills Self Feeding Self Feeding: Min Assist Grooming Grooming: Mod Assist Grooming Set-up: Sitting Bathing Bathing UE: Max Assist Bathing LE: Max Assist Bathing Set-up: Bedside Comments:: Pt not able to stand with assistance. Dressing Dressing UE: Max Assist Dressing LE: Max Assist Toilet Management Toilet Hygiene: Max Assist Toilet Clothing Management: Max Assist Functional Mobility Bed Mobility Rolling R/L: Mod Assist Scooting: Max Assist and 2 person assist Supine to Sit: Mod Assist and 2 person assist Sit to Supine: Max Assist and 2 person assist Transfers Sit to Stand: Max Assist Stand to Sit: Max Assist, Verbal Cues and Tactile Cues Stand Pivot Transfers: Max Assist, 2 person assist, Verbal Cues and Tactile Cues Comments:: Pt stood mod A then stood max A and legs juan daniel. Ambulation Weight Bearing Status: WBAT Assistive Device Used: Rolling Walker Orthotic/Prosthetic Device: No Comments:: Not able to walk at this time. Safety Awareness Safety Awareness: Fair CLARIBEL INDEX SCORE: . Additional Treatment Performed Time with patient Length of Evaluation: 17 Total treatment time: 20 Activities Do you enjoy playing games?: Yes Would you be interested in leaving your room for activities?: Yes Would you enjoy group activities?: Yes Do you have difficulty with your vision?: Yes Patient Interests:: Watching Television and Visiting/Socializing Assessment Problem List:: Decreased level of function, Decreased safety/Risk of falls and Weakness Rehab Potential: Fair Further Therapy Indicated?: Yes Candidate for Swing Bed for Therapy Services?: Not at this time. Evaluation Complexity: HISTORY: Medium, EXAM OF BODY SYSTEMS: Medium and CLINICAL DECISION MAKING: Medium Patient's Goal(s): Pt wants to be able to return home. Short Term Goals Goals GOAL 1: Pt to be SUP for feeding himself. Goal to be met by: 05/29/23 GOAL 2: Pt to sit EOB and complete BUE exercises. Goal to be met by: 05/29/23 GOAL 3: Pt to be able to sit in chair and dress himself CGA. Goal to be met by: 05/29/23 GOAL 4: Pt to increase activity tolerance to 10 minutes. Goal to be met by: 05/30/23 Long-Term Goals GOAL 1: Pt to be I with dressing himself. Goal to be met by: 06/01/23 GOAL 2: Pt to be I with toilet transfers. Goal to be met by: 06/01/23 GOAL 3: Pt to increase BUE strength to 4+/5. Goal to be met by: 06/01/23 Plan Plan of Care: Therapeutic EX, Neuromuscular Re-Educ, Therapeutic Activity and Self-Care/Home Management Frequency of Treatment: 1-2 X day, as tolerated Duration of Treatment: 1 Week Anticipated Discharge Destination: Home Treatment Diagnosis (ICD 10 Codes): Weakness R53.1, Z74.1 Need for assistance with personal care, Z74.0 Reduced mobility. Has the Physician been added for Co-signature?: Yes
[2023-05-26] MEDS: LIPITOR PO SCH (20:00)
[2023-05-27] MEDS: PULMICORT 1 MG/2 ML NEB SCH ×2 (04:40→17:00)
[2023-05-27 04:44] LABS: ABG O2 HGB 93.9 % (95-100); COHb 1.8 (0.5-1.5); HCO3 34.6 (21-28); MetHb 0.8 (0-1.5); TCO2 36.8 (19-24); tHb 14.6 g/dl (11.7-17.4)
[2023-05-27 04:51] LABS: ABG PH 7.29 (7.35-7.45)
[2023-05-27] MEDS: SOLU-MEDROL 40 MG IVP SCH ×3 (04:51→20:40)
[2023-05-27] MEDS: LASIX IVP SCH (05:15)
[2023-05-27 05:17] LABS: BASOPHILS % (AUTO) 0.3 % (0.0-3.0); EOSINOPHILS % (AUTO) 0.1 % (0.0-7.0); HEMATOCRIT 32.5 % (42.0-52.0); IMMATURE GRANULOCYTE # (AUTO) 0.1 (0.0-1.0); IMMATURE GRANULOCYTE % (AUTO) 0.6 % (0.0-5.0); LYMPHOCYTES # (AUTO) 0.9 K/uL (0.60-3.4); LYMPHOCYTES % (AUTO) 5.9 (10.0-50.0); MEAN CORPUSCULAR HEMOGLOBIN 30.4 pg (27.0-31.0); MEAN CORPUSCULAR HGB CONC 30.8 (31.8-35.4); MEAN CORPUSCULAR VOLUME 98.8 fl (80.0-94.0); MONOCYTES # (AUTO) 0.6 K/uL (0.4-2.0); MONOCYTES % (AUTO) 4.3 (0-10); NEUTROPHILS % (AUTO) 88.8 % (42.2-75.2); PLATELET COUNT 210 10^3/uL (140-440); RDW COEFFICIENT OF VARIATION 13.6 % (11.6-14.8); RED BLOOD COUNT 3.29 10^6/ul (4.70-6.10); WHITE BLOOD COUNT 14.67 K/ul (4.2-10.2)
[2023-05-27 05:33] LABS: ALBUMIN 2.8 g/dL (3.5-5.0); BILIRUBIN,TOTAL 0.4 mg/dL (0.2-1.3); CALCIUM 8.1 mg/dL (8.4-10.2); CREATININE 1.5 mg/dL (0.60-1.10); POTASSIUM 3.9 mmol/L (3.5-5.1); TOTAL PROTEIN 6.3 g/dL (6.3-8.2)
[2023-05-27] MEDS: ASPIRIN CHEWABLE PO SCH (07:29)
[2023-05-27 07:57] LABS: ABG O2 HGB 95.6 % (95-100); ABG PH 7.34 (7.35-7.45); BEecf 8.2 (-2.0-3.0); COHb 1.5 (0.5-1.5); MetHb 0.7 (0-1.5); TCO2 35.9 (19-24); tHb 10.3 g/dl (11.7-17.4)
[2023-05-27] MEDS: LOVENOX SUBCUT SCH (08:08)
[2023-05-27] MEDS: TOPROL XL PO SCH (08:08)
[2023-05-27] MEDS: FLOMAX PO SCH (08:08)
[2023-05-27] MEDS: IMDUR PO SCH (08:08)
[2023-05-27] MEDS: MUCINEX PO SCH ×2 (08:08→20:40)
[2023-05-27] MEDS: LEVAQUIN 750 MG/150 ML D5W 750 MG/150 ML BAG IV SCH (08:08)
[2023-05-27] MEDS: MYSOLINE PO SCH ×3 (08:08→20:40)
--- NOTE | 2023-05-27 09:05 | PCM.PROG ---
Date/Time Seen Date Seen by Provider: 05/27/23 Time Seen by Provider: 08:30 Provider Provider: J LUIS QUEEN, [facility] Chief Complaint Chief Complaint: PNEUMONIA, ACUTE RENAL FAILURE Subjective Subjective: Bipap worn overnight. CO2 increased. Settings adjusted after abg at 4am. CO2 decreased at recheck at 0745 this morning. Patient more awake this am. Oriented x3. Objective Appearance: Positive No Apparent Distress and Alert and Oriented x3 Chest/Lungs: Positive Symmetrical With Equal Breath Sounds, Clear to Auscultation Bilaterally and Good Air Movement all 4 Lung [place] Heart: Positive RRR and Pulses Normal GI/: Positive Soft, Nontender, Bowel Sounds Normal, No Distention and No Organomegaly Musculoskeletal: Positive Not Examined Neurological: Positive Sensation Intact, Motor intact, Reflexes Intact, Alert and Oriented Additional Findings: Generalized weakness Vital Signs Vital Signs: Vital Signs: Last 24 Hours 05/26/23 09:54 05/26/23 11:47 05/26/23 12:45 Temperature 99.5 F Temperature Source Temporal Artery Scan Pulse Rate 68 Respiratory Rate 14 Blood Pressure Blood Pressure Mean Blood Pressure Location Blood Pressure Position O2 Sat by Pulse Oximetry 98 Oxygen Delivery Method Nasal Cannula Bi-pap Oxygen Flow Rate Fraction of Inspired Oxygen (FIO2) 40 Telemetry Type Telemetry Monitoring Telemetry Heart Rate Telemetry SPO2 EKG [place] Interval EKG QRS Interval Telemetry Strip Reading 05/26/23 13:00 05/26/23 13:46 05/26/23 14:00 Temperature 97.7 F Temperature Source Tympanic Pulse Rate 68 Respiratory Rate 26 H Blood Pressure 114/55 L Blood Pressure Mean 74 Blood Pressure Location Left Arm Blood Pressure Position Sitting O2 Sat by Pulse Oximetry 100 98 Oxygen Delivery Method Bi-pap Oxygen Flow Rate Fraction of Inspired Oxygen (FIO2) 40 Telemetry Type Remote Telemetry Telemetry Monitoring Continues Telemetry Heart Rate 68 Telemetry SPO2 98 EKG LA Interval 0.25 H EKG QRS Interval 0.10 Telemetry Strip Reading SR with 1st Degree AVB 05/26/23 14:00 05/26/23 17:07 05/26/23 19:00 Temperature Temperature Source Pulse Rate Respiratory Rate Blood Pressure Blood Pressure Mean Blood Pressure Location Blood Pressure Position O2 Sat by Pulse Oximetry 98 98 Oxygen Delivery Method Bi-pap Oxygen Flow Rate Fraction of Inspired Oxygen (FIO2) 40 40 Telemetry Type Remote Telemetry Telemetry Monitoring Continues Telemetry Heart Rate 77 Telemetry SPO2 92 L EKG LA Interval 0.26 H EKG QRS Interval 0.05 L Telemetry Strip Reading SR WITH 1ST DEGREE AVB 05/26/23 19:29 05/26/23 20:33 05/26/23 21:19 Temperature 98.8 F Temperature Source Oral Pulse Rate 80 Respiratory Rate 20 Blood Pressure 90/38 L Blood Pressure Mean 55 Blood Pressure Location Right Arm Blood Pressure Position Supine O2 Sat by Pulse Oximetry 91 L 93 L Oxygen Delivery Method Nasal Cannula Nasal Cannula Bi-pap Oxygen Flow Rate 4 4 Fraction of Inspired Oxygen (FIO2) 40 Telemetry Type Telemetry Monitoring Telemetry Heart Rate Telemetry SPO2 EKG LA Interval EKG QRS Interval Telemetry Strip Reading 05/26/23 21:19 05/26/23 21:39 05/27/23 00:52 Temperature Temperature Source Pulse Rate Respiratory Rate Blood Pressure 93/46 L Blood Pressure Mean 61 Blood Pressure Location Left Arm Blood Pressure Position Supine O2 Sat by Pulse Oximetry 93 L 93 L Oxygen Delivery Method Bi-pap Oxygen Flow Rate Fraction of Inspired Oxygen (FIO2) 40 40 Telemetry Type Remote Telemetry Telemetry Monitoring Continues Telemetry Heart Rate 72 Telemetry SPO2 94 EKG LA Interval 0.26 H EKG QRS Interval 0.06 Telemetry Strip Reading SR WITH 1ST DEGREE AVB 05/27/23 00:52 05/27/23 01:02 05/27/23 04:58 Temperature Temperature Source Pulse Rate 62 Respiratory Rate 20 Blood Pressure 98/55 L Blood Pressure Mean 69 Blood Pressure Location Left Arm Blood Pressure Position Supine O2 Sat by Pulse Oximetry 96 98 93 L Oxygen Delivery Method Bi-pap Oxygen Flow Rate Fraction of Inspired Oxygen (FIO2) 40 40 35 Telemetry Type Telemetry Monitoring Telemetry Heart Rate Telemetry SPO2 EKG LA Interval EKG QRS Interval Telemetry Strip Reading 05/27/23 04:58 05/27/23 05:02 05/27/23 07:00 Temperature 97.0 F L Temperature Source Temporal Artery Scan Pulse Rate 65 Respiratory Rate 16 Blood Pressure 119/69 Blood Pressure Mean 85 Blood Pressure Location Left Arm Blood Pressure Position Supine O2 Sat by Pulse Oximetry 93 L 93 L Oxygen Delivery Method Bi-pap Room Air Oxygen Flow Rate Fraction of Inspired Oxygen (FIO2) 35 35 Telemetry Type Remote Telemetry Telemetry Monitoring Continues Telemetry Heart Rate 65 Telemetry SPO2 98 EKG LA Interval 0.24 H EKG QRS Interval 0.09 Telemetry Strip Reading NSR with 1st Degree AVB 05/27/23 08:15 05/27/23 08:15 Temperature Temperature Source Pulse Rate Respiratory Rate Blood Pressure Blood Pressure Mean Blood Pressure Location Blood Pressure Position O2 Sat by Pulse Oximetry Oxygen Delivery Method Bi-pap Oxygen Flow Rate Fraction of Inspired Oxygen (FIO2) 30 30 Telemetry Type Telemetry Monitoring Telemetry Heart Rate Telemetry SPO2 EKG LA Interval EKG QRS Interval Telemetry Strip Reading Lab Results Lab Results: Lab Results: Last 24 Hours 05/27/23 05/27/23 05/27/23 07:47 04:52 04:30 WBC 14.67 H RBC 3.29 L Hgb 10.0 L Hct 32.5 L MCV 98.8 H MCH 30.4 MCHC 30.8 L RDW Coeff of Shaun 13.6 Plt Count 210 Immature Gran % (Auto) 0.6 Neut % (Auto) 88.8 H Lymph % (Auto) 5.9 L [place] % (Auto) 4.3 Eos % (Auto) 0.1 Baso % (Auto) 0.3 Neut # (Auto) 13.0 H Lymph # (Auto) 0.9 [place] # (Auto) 0.6 Eos # (Auto) 0.0 Baso # (Auto) 0.0 Immature Gran # (Auto) 0.1 Puncture Site Lbrach Lb Base Excess 8.2 H 8.0 H O2 Saturation 97.0 95.0 ABG pH 7.34 L 7.29 L* ABG pCO2 63.0 H 72.0 H ABG pO2 96.0 84.0 L ABG HCO3 34.0 H 34.6 H ABG Total CO2 35.9 H 36.8 H Travis Test + Hemoglobin 0.7 0.8 Oxyhemoglobin 95.6 93.9 L Carboxyhemoglobin 1.5 1.8 H Total Hemoglobin 10.3 L 14.6 O2 Delivery Device Bipap Bipap Oxygen Liter Flow FiO2 % 35.0 40.0 Sodium 137.0 Potassium 3.90 Chloride 98.0 Carbon Dioxide 32.0 H Anion Gap 10.90 BUN 37.0 H Creatinine 1.50 H Estimated GFR (MDRD) 46.00 BUN/Creatinine Ratio 24.66 Glucose 140.0 H Calcium 8.10 L Total Bilirubin 0.40 AST 92.0 H D ALT 30.0 Alkaline Phosphatase 126.0 H Total Protein 6.30 Albumin 2.80 L Globulin 3.50 Albumin/Globulin Ratio 0.80 Procalcitonin 0.49 H Urine Color Urine Clarity Urine pH Ur Specific [place] Urine Protein Urine Glucose (UA) Urine Ketones Urine Blood Urine Nitrite Urine Bilirubin Urine Urobilinogen Ur Leukocyte Esterase Urine Microscopic RBC Urine Microscopic WBC Ur Squamous Epith Cells Amorphous Sediment Urine Bacteria Granular Casts Urine Legionella Ag 05/26/23 05/26/23 05/26/23 19:45 13:19 10:26 WBC RBC Hgb Hct MCV MCH MCHC RDW Coeff of Shaun Plt Count Immature Gran % (Auto) Neut % (Auto) Lymph % (Auto) [place] % (Auto) Eos % (Auto) Baso % (Auto) Neut # (Auto) Lymph # (Auto) [place] # (Auto) Eos # (Auto) Baso # (Auto) Immature Gran # (Auto) Puncture Site Lbrach [place] Base Excess 9.9 H 10.2 H O2 Saturation 95.1 91.9 L ABG pH 7.42 7.36 ABG pCO2 53.0 H 63.0 H ABG pO2 75.0 L 66.0 L ABG HCO3 34.4 H 35.6 H ABG Total CO2 36.0 H 37.5 H Travis Test Pos Hemoglobin 0.8 0.8 Oxyhemoglobin 94.7 L 92.7 L Carboxyhemoglobin 1.9 H 2.0 H Total Hemoglobin 9.3 L 10.4 L O2 Delivery Device Bipap Cannula Oxygen Liter Flow 4.00 FiO2 % 40.0 Sodium Potassium Chloride Carbon Dioxide Anion Gap BUN Creatinine Estimated GFR (MDRD) BUN/Creatinine Ratio Glucose Calcium Total Bilirubin AST ALT Alkaline Phosphatase Total Protein Albumin Globulin Albumin/Globulin Ratio Procalcitonin 0.48 H Urine Color Urine Clarity Urine pH Ur Specific [place] Urine Protein Urine Glucose (UA) Urine Ketones Urine Blood Urine Nitrite Urine Bilirubin Urine Urobilinogen Ur Leukocyte Esterase Urine Microscopic RBC Urine Microscopic WBC Ur Squamous Epith Cells Amorphous Sediment Urine Bacteria Granular Casts Urine Legionella Ag 05/26/23 05/22/23 09:10 19:28 WBC RBC Hgb Hct MCV MCH MCHC RDW Coeff of Shaun Plt Count Immature Gran % (Auto) Neut % (Auto) Lymph % (Auto) [place] % (Auto) Eos % (Auto) Baso % (Auto) Neut # (Auto) Lymph # (Auto) [place] # (Auto) Eos # (Auto) Baso # (Auto) Immature Gran # (Auto) Puncture Site Base Excess O2 Saturation ABG pH ABG pCO2 ABG pO2 ABG HCO3 ABG Total CO2 Travis Test Hemoglobin Oxyhemoglobin Carboxyhemoglobin Total Hemoglobin O2 Delivery Device Oxygen Liter Flow FiO2 % Sodium Potassium Chloride Carbon Dioxide Anion Gap BUN Creatinine Estimated GFR (MDRD) BUN/Creatinine Ratio Glucose Calcium Total Bilirubin AST ALT Alkaline Phosphatase Total Protein Albumin Globulin Albumin/Globulin Ratio Procalcitonin Urine Color Yellow Urine Clarity Slightly Urine pH 5.0 Ur Specific [place] 1.025 Urine Protein 3+ H Urine Glucose (UA) Negative Urine Ketones Negative Urine Blood 3+ H Urine Nitrite Negative Urine Bilirubin Negative Urine Urobilinogen 0.2 Ur Leukocyte Esterase Trace H Urine Microscopic RBC 30-50 Urine Microscopic WBC 10-20 Ur Squamous Epith Cells 0-2 Amorphous Sediment 2+ Urine Bacteria 1+ Granular Casts 2-5 Urine Legionella Ag Negative Additional Comments Additional Comments: I have independently reviewed and interpreted the labs/EKGs/imaging ordered during this hospital stay. I have reviewed outside records that are available in our EMR that pertain to medical stay including imaging/notes/labs from previous visits. Active Medications Active Medications: Medications Generic Name Dose Route Start Last Admin Trade Name Freq PRN Reason Stop Dose Admin Acetaminophen 650 mg 05/22/23 19:24 Acetaminophen 325 Mg Tablet PO Q4H PRN Mild Pain Albuterol/Ipratropium 3 ml 05/22/23 19:28 05/26/23 00:33 Ipratropium/Albuterol Vial.Neb NEB 3 ml RTQ6H PRN Administration Wheezing Allopurinol 100 mg 05/22/23 21:29 05/23/23 08:15 Allopurinol 100 Mg Tablet PO 100 mg DAILY PRN Administration MODERATE PAIN Aspirin 81 mg 05/23/23 07:30 05/27/23 07:29 Aspirin 81 Mg Tab.Chew PO 81 mg DAILYWM2 ELLIE Administration Atorvastatin Calcium 40 mg 05/22/23 22:00 05/26/23 20:00 Atorvastatin Calcium 20 Mg Tablet PO 40 mg BEDTIME ELLIE Administration Benzonatate 100 mg 05/22/23 21:38 05/25/23 08:24 Benzonatate 100 Mg Capsule PO 100 mg TID PRN Administration Cough Budesonide 2 mg 05/26/23 18:00 05/27/23 04:40 Budesonide 1 Mg/2 Ml Vial.Neb NEB 2 mg RTQ6H ELLIE Administration Enoxaparin Sodium 40 mg 05/23/23 09:25 05/27/23 08:08 Enoxaparin Sodium 40 Mg/0.4 Ml Syr SUBCUT 40 mg DAILY ELLIE Administration Furosemide 20 mg 05/25/23 17:00 05/27/23 05:15 Furosemide Inj 20 Mg/2 Ml Vial IVP 20 mg BIDAC2 ELLIE Administration Guaifenesin 600 mg 05/23/23 09:00 05/27/23 08:08 Guaifenesin 600 Mg Tablet.Er PO 600 mg Q12HR ELLIE Administration Guaifenesin/Dextromethorphan 5 ml 05/22/23 21:38 05/25/23 08:24 Guaifenesin/Dextromethorphan 200/20 Mg/10 Ml Cup PO 5 ml Q4H PRN Administration Cough Levofloxacin/Dextrose 750 mg in 150 mls @ 100 mls/hr 05/26/23 13:00 05/27/23 08:08 Levaquin 750 Mg/150 Ml D5w IV 05/29/23 12:59 100 mls/hr DAILY ELLIE Administration Insulin Human Lispro 0 unit 05/23/23 09:23 05/25/23 17:00 Insulin Lispro 100 Unit/Ml Vial SUBCUT 2 unit PRN PRN Administration Hyperglycemia Protocol Isosorbide Mononitrate 30 mg 05/23/23 09:00 05/27/23 08:08 Isosorbide Mononitrate 30 Mg Tab.Er.24h PO 30 mg DAILY ELLIE Administration Methylprednisolone Sodium Succinate 40 mg 05/26/23 13:00 05/27/23 04:51 Methylprednisolone Sod Succ/Pf 40 Mg/Ml Vial IVP 40 mg Q8HR ELLIE Administration Metoprolol Succinate 50 mg 05/23/23 09:00 05/27/23 08:08 Metoprolol Succinate 50 Mg Tab.Er.24h PO 50 mg DAILY ELLIE Administration Ondansetron HCl 4 mg 05/22/23 19:24 Ondansetron Hcl/Pf 4 Mg/2 Ml Sdv IVP Q6H PRN Nausea / Vomiting Primidone 250 mg 05/22/23 21:00 05/27/23 08:08 Primidone 50 Mg Tablet PO 250 mg TID ELLIE Administration Sodium Chloride 1 syr 05/26/23 17:47 05/26/23 17:51 0.9% Sodium Chloride 10 Ml Disp.Syrin IVF 1 syr PRN PRN Administration Maintain IV Patency Sodium Chloride 1 syr 05/26/23 21:00 05/27/23 04:51 0.9% Sodium Chloride 10 Ml Disp.Syrin IVF 1 syr Q8HR ELLIE Administration Tamsulosin HCl 0.4 mg 05/24/23 10:20 05/27/23 08:08 Tamsulosin Hcl 0.4 Mg Cap.Er.24h PO 0.4 mg DAILY ELLIE Administration Plan Plan: 1. Acute hypoxic hypercapnic respiratory failure in setting of CAP and sleep apnea - Required bipap yesterday, attempting to wean, will need to wear at bedtime due to severe sleep apnea, abx changed to levaquin yesterday, continue duonebs and pulmicort, wean O2 when able. 2. Community acquired pneumonia, bilateral - Plan as above. Legionella, sputum, and blood cultures negative. 3. NAILA secondary to urinary retention/obstructive uropathy - Improved, yanes in place, giving lasix due to overload, Dr. Ardon- urology on discharge 4. Acute Transaminitis - Improving, liver US negative, trend and monitor 5. Acute Metabolic Encephalopathy - Improving, UA completed, culture prelim showing no growth and no obvious signs of infection, , avoid neurologically altering agents 5. CHF - Improving, diuresd well, stopping IV lasix and transition to PO today, no prev. diagnosis, BNP high, echo upon discharge 6. DMT2 - Hold metformin. Accuchecks ordered. Mild humalog sliding scale. 7. Hypertension - Hold losartan/HCTZ due to NAILA. 8. Hyperlipidemia - Holding statin due to worsening lfts 9. Sleep apnea - continuous O2 monitoring in place, will setup with DME at discharge DVT Prophylaxis: Lovenox Review Statement Review Statement: I have personally discussed and reviewed the patient's visit/currently labs/imaging/decision making with Dr. Starks, my supervising attending. Greater that 50 minutes spent with patient, 50% of the time spent with this patient was devoted to counseling and coordination of care.
[2023-05-27 11:09] LABS: BEecf 8.8 (-2.0-3.0); COHb 1.6 (0.5-1.5); HCO3 30.4 (21-28); MetHb 0.9 (0-1.5); TCO2 31.4 (19-24); sO2 96.1 % (94-98)
[2023-05-27] MEDS: LIPITOR PO SCH (20:40)
[2023-05-28] MEDS: SOLU-MEDROL 40 MG IVP SCH (05:11)
[2023-05-28] MEDS: LASIX TAB PO SCH (05:11)
[2023-05-28 05:14] LABS: BASOPHILS % (AUTO) 0.3 % (0.0-3.0); EOSINOPHILS % (AUTO) 0.2 % (0.0-7.0); HEMATOCRIT 31.3 % (42.0-52.0); HEMOGLOBIN 9.8 g/dl (14.0-18.0); IMMATURE GRANULOCYTE # (AUTO) 0.1 (0.0-1.0); IMMATURE GRANULOCYTE % (AUTO) 0.5 % (0.0-5.0); LYMPHOCYTES % (AUTO) 8.5 (10.0-50.0); MEAN CORPUSCULAR HEMOGLOBIN 30.4 pg (27.0-31.0); MEAN CORPUSCULAR HGB CONC 31.3 (31.8-35.4); MEAN CORPUSCULAR VOLUME 97.2 fl (80.0-94.0); MONOCYTES # (AUTO) 0.6 K/uL (0.4-2.0); MONOCYTES % (AUTO) 4.7 (0-10); NEUTROPHILS % (AUTO) 85.8 % (42.2-75.2); PLATELET COUNT 216 10^3/uL (140-440); RDW COEFFICIENT OF VARIATION 13.6 % (11.6-14.8); RED BLOOD COUNT 3.22 10^6/ul (4.70-6.10); WHITE BLOOD COUNT 11.64 K/ul (4.2-10.2)
[2023-05-28] MEDS: PULMICORT 1 MG/2 ML NEB SCH ×2 (05:18→17:32)
[2023-05-28 05:40] LABS: ALANINE AMINOTRANSFERASE 38.9 U/L (0-50); ALBUMIN 2.93 g/dL (3.5-5.0); ALKALINE PHOSPHATASE 129.5 U/L (56-119); ASPARTATE AMINO TRANSFERASE 158.8 U/L (17-59); BILIRUBIN,TOTAL 0.46 mg/dL (0.2-1.3); BLOOD UREA NITROGEN 40.8 mg/dL (9-20); CALCIUM 8.08 mg/dL (8.4-10.2); CARBON DIOXIDE 33.8 mmol/L (22-30.0); CHLORIDE 101.3 mmol/L (98-107); CREATININE 1.66 mg/dL (0.60-1.10); GLUCOSE 154.3 mg/dL (74-106); POTASSIUM 3.63 mmol/L (3.5-5.1); SODIUM 137.7 mmol/L (134.5-145); TOTAL PROTEIN 6.31 g/dL (6.3-8.2)
[2023-05-28] MEDS: LEVAQUIN 750 MG/150 ML D5W 750 MG/150 ML BAG IV SCH (08:51)
[2023-05-28] MEDS: ASPIRIN CHEWABLE PO SCH (08:56)
[2023-05-28] MEDS: MYSOLINE PO SCH ×3 (08:57→20:18)
[2023-05-28] MEDS: IMDUR PO SCH (08:58)
[2023-05-28] MEDS: MUCINEX PO SCH ×2 (08:59→20:18)
[2023-05-28] MEDS: FLOMAX PO SCH (08:59)
[2023-05-28] MEDS: TOPROL XL PO SCH (08:59)
[2023-05-28] MEDS: LOVENOX SUBCUT SCH (09:00)
--- NOTE | 2023-05-28 09:07 | PCM.PROG ---
Date/Time Seen Date Seen by Provider: 05/28/23 Time Seen by Provider: 08:45 Provider Provider: J LUIS QUEEN[facility] Chief Complaint Chief Complaint: PNEUMONIA, ACUTE RENAL FAILURE Subjective Subjective: Tolerated bipap from 10pm-2am. Weaned down to 3L via NC Asleep without bipap on during my exam. Reported to nursing staff that he feels his breathing is much better today. Objective Appearance: Positive No Apparent Distress and Alert and Oriented x3 Chest/Lungs: Positive Symmetrical With Equal Breath Sounds, Clear to Auscultation Bilaterally and Good Air Movement all 4 Lung [place] Heart: Positive RRR and Pulses Normal GI/: Positive Soft, Nontender, Bowel Sounds Normal, No Distention and No Organomegaly Musculoskeletal: Positive Other (trace edema) Neurological: Positive Sensation Intact, Motor intact, Reflexes Intact, Alert and Oriented Additional Findings: generalized weakness Vital Signs Vital Signs: Vital Signs: Last 24 Hours 05/27/23 09:39 05/27/23 09:39 05/27/23 11:17 Temperature Temperature Source Pulse Rate Respiratory Rate Blood Pressure Blood Pressure Mean Blood Pressure Location Blood Pressure Position O2 Sat by Pulse Oximetry 95 95 Oxygen Delivery Method Bi-pap Oxygen Flow Rate Fraction of Inspired Oxygen (FIO2) 30 30 Height 5 ft 11 in Weight 204 lb 2 oz Telemetry Type Telemetry Monitoring Telemetry Heart Rate Telemetry SPO2 EKG [place] Interval EKG QRS Interval Telemetry Strip Reading 05/27/23 11:27 05/27/23 11:27 05/27/23 13:00 Temperature Temperature Source Pulse Rate Respiratory Rate Blood Pressure Blood Pressure Mean Blood Pressure Location Blood Pressure Position O2 Sat by Pulse Oximetry Oxygen Delivery Method Nasal Cannula Oxygen Flow Rate 4 Fraction of Inspired Oxygen (FIO2) 30 Height Weight Telemetry Type Remote Telemetry Telemetry Monitoring Continues Telemetry Heart Rate 65 Telemetry SPO2 100 EKG [place] Interval 0.21 H EKG QRS Interval 0.09 Telemetry Strip Reading NSR, 1 st degree AVB 05/27/23 13:53 05/27/23 14:00 05/27/23 19:00 Temperature 98 F Temperature Source Oral Pulse Rate 68 Respiratory Rate 16 Blood Pressure 111/65 Blood Pressure Mean 80 Blood Pressure Location Right Arm Blood Pressure Position Sitting O2 Sat by Pulse Oximetry 95 98 Oxygen Delivery Method Nasal Cannula Nasal Cannula Oxygen Flow Rate 3 4 Fraction of Inspired Oxygen (FIO2) Height Weight Telemetry Type Remote Telemetry Telemetry Monitoring Continues Telemetry Heart Rate 73 Telemetry SPO2 92 L EKG [place] Interval 0.26 H EKG QRS Interval 0.09 Telemetry Strip Reading SR WITH 1ST DEGREE AVB 05/27/23 19:38 05/27/23 19:53 05/27/23 21:15 Temperature 97.2 F L Temperature Source Temporal Artery Scan Pulse Rate 69 Respiratory Rate 18 Blood Pressure 136/69 Blood Pressure Mean 91 Blood Pressure Location Left Arm Blood Pressure Position Supine O2 Sat by Pulse Oximetry 97 Oxygen Delivery Method Nasal Cannula Nasal Cannula Nasal Cannula Oxygen Flow Rate 3 3 4 Fraction of Inspired Oxygen (FIO2) Height Weight Telemetry Type Telemetry Monitoring Telemetry Heart Rate Telemetry SPO2 EKG [place] Interval EKG QRS Interval Telemetry Strip Reading 05/27/23 21:25 05/28/23 00:59 05/28/23 01:00 Temperature Temperature Source Pulse Rate Respiratory Rate Blood Pressure Blood Pressure Mean Blood Pressure Location Blood Pressure Position O2 Sat by Pulse Oximetry 95 96 Oxygen Delivery Method Oxygen Flow Rate Fraction of Inspired Oxygen (FIO2) 30 30 Height Weight Telemetry Type Remote Telemetry Telemetry Monitoring Continues Telemetry Heart Rate 64 Telemetry SPO2 98 EKG [place] Interval 0.28 H EKG QRS Interval 0.04 L Telemetry Strip Reading SR WITH 1ST DEGREE AVB 05/28/23 04:52 05/28/23 05:04 05/28/23 05:52 Temperature 97.6 F Temperature Source Temporal Artery Scan Pulse Rate 70 Respiratory Rate 18 Blood Pressure 130/67 Blood Pressure Mean 88 Blood Pressure Location Left Arm Blood Pressure Position Sitting O2 Sat by Pulse Oximetry 98 97 Oxygen Delivery Method Nasal Cannula Nasal Cannula Oxygen Flow Rate 3 3 Fraction of Inspired Oxygen (FIO2) Height Weight 203 lb Telemetry Type Telemetry Monitoring Telemetry Heart Rate Telemetry SPO2 EKG [place] Interval EKG QRS Interval Telemetry Strip Reading 05/28/23 07:00 05/28/23 08:00 Temperature Temperature Source Pulse Rate Respiratory Rate Blood Pressure Blood Pressure Mean Blood Pressure Location Blood Pressure Position O2 Sat by Pulse Oximetry Oxygen Delivery Method Nasal Cannula Oxygen Flow Rate 3 Fraction of Inspired Oxygen (FIO2) Height Weight Telemetry Type Remote Telemetry Telemetry Monitoring Continues Telemetry Heart Rate 68 Telemetry SPO2 100 EKG [place] Interval 0.24 H EKG QRS Interval 0.08 Telemetry Strip Reading SR with 1st degree AVB Lab Results Lab Results: Lab Results: Last 24 Hours 05/28/23 05/27/23 04:55 10:56 WBC 11.64 H RBC 3.22 L Hgb 9.8 L Hct 31.3 L MCV 97.2 H MCH 30.4 MCHC 31.3 L RDW Coeff of Shaun 13.6 Plt Count 216 Immature Gran % (Auto) 0.5 Neut % (Auto) 85.8 H Lymph % (Auto) 8.[address] [place] % (Auto) 4.7 Eos % (Auto) 0.2 Baso % (Auto) 0.3 Neut # (Auto) 10.0 H Lymph # (Auto) 1.0 [place] # (Auto) 0.6 Eos # (Auto) 0.0 Baso # (Auto) 0.0 Immature Gran # (Auto) 0.1 Puncture Site Lbrach Base Excess 8.8 H O2 Saturation 96.1 ABG pH 7.60 H* ABG pCO2 31.0 L ABG pO2 68.0 L ABG HCO3 30.4 H ABG Total CO2 31.4 H Hemoglobin 0.9 Oxyhemoglobin 95.0 Carboxyhemoglobin 1.6 H Total Hemoglobin 10.0 L O2 Delivery Device Bipap FiO2 % 30.0 Sodium 137.7 Potassium 3.63 Chloride 101.3 Carbon Dioxide 33.8 H Anion Gap 6.23 BUN 40.8 H Creatinine 1.66 H Estimated GFR (MDRD) 41.00 BUN/Creatinine Ratio 24.57 Glucose 154.3 H Calcium 8.08 L Total Bilirubin 0.46 AST 158.8 H D ALT 38.9 Alkaline Phosphatase 129.5 H Total Protein 6.31 Albumin 2.93 L Globulin 3.38 Albumin/Globulin Ratio 0.86 Procalcitonin 0.35 H Additional Comments Additional Comments: I have independently reviewed and interpreted the labs/EKGs/imaging ordered during this hospital stay. I have reviewed outside records that are available in our EMR that pertain to medical stay including imaging/notes/labs from previous visits. Active Medications Active Medications: Medications Generic Name Dose Route Start Last Admin Trade Name Freq PRN Reason Stop Dose Admin Acetaminophen 650 mg 05/22/23 19:24 Acetaminophen 325 Mg Tablet PO Q4H PRN Mild Pain Albuterol/Ipratropium 3 ml 05/22/23 19:28 05/26/23 00:33 Ipratropium/Albuterol Vial.Neb NEB 3 ml RTQ6H PRN Administration Wheezing Allopurinol 100 mg 05/22/23 21:29 05/23/23 08:15 Allopurinol 100 Mg Tablet PO 100 mg DAILY PRN Administration MODERATE PAIN Aspirin 81 mg 05/23/23 07:30 05/27/23 07:29 Aspirin 81 Mg Tab.Chew PO 81 mg DAILYWM2 ELLIE Administration Atorvastatin Calcium 40 mg 05/22/23 22:00 05/27/23 20:40 Atorvastatin Calcium 20 Mg Tablet PO 40 mg BEDTIME ELLIE Administration Benzonatate 100 mg 05/22/23 21:38 05/25/23 08:24 Benzonatate 100 Mg Capsule PO 100 mg TID PRN Administration Cough Budesonide 1 mg 05/27/23 18:00 05/28/23 05:18 Budesonide 1 Mg/2 Ml Vial.Neb NEB 1 mg RTBID ELLIE Administration Enoxaparin Sodium 40 mg 05/23/23 09:25 05/27/23 08:08 Enoxaparin Sodium 40 Mg/0.4 Ml Syr SUBCUT 40 mg DAILY ELLIE Administration Furosemide 20 mg 05/28/23 06:00 05/28/23 05:11 Furosemide 20 Mg Tablet PO 20 mg QDAC2 ELLIE Administration Guaifenesin 600 mg 05/23/23 09:00 05/27/23 20:40 Guaifenesin 600 Mg Tablet.Er PO 600 mg Q12HR ELLIE Administration Guaifenesin/Dextromethorphan 5 ml 05/22/23 21:38 05/25/23 08:24 Guaifenesin/Dextromethorphan 200/20 Mg/10 Ml Cup PO 5 ml Q4H PRN Administration Cough Levofloxacin/Dextrose 750 mg in 150 mls @ 100 mls/hr 05/26/23 13:00 05/27/23 08:08 Levaquin 750 Mg/150 Ml D5w IV 05/29/23 12:59 100 mls/hr DAILY ELLIE Administration Insulin Human Lispro 0 unit 05/23/23 09:23 05/25/23 17:00 Insulin Lispro 100 Unit/Ml Vial SUBCUT 2 unit PRN PRN Administration Hyperglycemia Protocol Isosorbide Mononitrate 30 mg 05/23/23 09:00 05/27/23 08:08 Isosorbide Mononitrate 30 Mg Tab.Er.24h PO 30 mg DAILY ELLIE Administration Methylprednisolone Sodium Succinate 40 mg 05/26/23 13:00 05/28/23 05:11 Methylprednisolone Sod Succ/Pf 40 Mg/Ml Vial IVP 40 mg Q8HR ELLIE Administration Metoprolol Succinate 50 mg 05/23/23 09:00 05/27/23 08:08 Metoprolol Succinate 50 Mg Tab.Er.24h PO 50 mg DAILY ELLIE Administration Ondansetron HCl 4 mg 05/22/23 19:24 Ondansetron Hcl/Pf 4 Mg/2 Ml Sdv IVP Q6H PRN Nausea / Vomiting Primidone 250 mg 05/22/23 21:00 05/27/23 20:40 Primidone 50 Mg Tablet PO 250 mg TID ELLIE Administration Sodium Chloride 1 syr 05/26/23 17:47 05/26/23 17:51 0.9% Sodium Chloride 10 Ml Disp.Syrin IVF 1 syr PRN PRN Administration Maintain IV Patency Sodium Chloride 1 syr 05/26/23 21:00 05/28/23 05:11 0.9% Sodium Chloride 10 Ml Disp.Syrin IVF 1 syr Q8HR ELLIE Administration Tamsulosin HCl 0.4 mg 05/24/23 10:20 05/27/23 08:08 Tamsulosin Hcl 0.4 Mg Cap.Er.24h PO 0.4 mg DAILY ELLIE Administration Plan Plan: 1. Acute hypoxic hypercapnic respiratory failure in setting of CAP and sleep apnea - continue to wean O2 as tolerated, bipap at bedtime due to severe sleep apnea, levaquin, continue duonebs and pulmicort, wean O2 when able. 2. Community acquired pneumonia, bilateral - Plan as above. Legionella, sputum, and blood cultures negative. 3. NAILA secondary to urinary retention/obstructive uropathy - Improved, yanes in place, giving lasix due to overload, Dr. Ardon- urology on discharge 4. Acute Transaminitis - Improving, liver US negative, trend and monitor 5. Acute Metabolic Encephalopathy - Resolved 5. CHF - Improving, diuresed well, transitioned to PO lasix yesterday, no prev. diagnosis, BNP high, echo ordered 6. DMT2 - Hold metformin. Accuchecks ordered. Mild humalog sliding scale. 7. Hypertension - Hold losartan/HCTZ due to NAILA. 8. Hyperlipidemia - Holding statin due to worsening lfts 9. Sleep apnea - continuous O2 monitoring in place, will setup with DME at discharge DVT Prophylaxis: Lovenox Review Statement Review Statement: I have personally discussed and reviewed the patient's visit/currently labs/imaging/decision making with Dr. Starks, my supervising attending. Greater that 50 minutes spent with patient, 50% of the time spent with this patient was devoted to counseling and coordination of care.
[2023-05-28] MEDS: MIRALAX PO PRN (12:02)
[2023-05-28] MEDS: DUONEB NEB PRN (17:33)
[2023-05-28] MEDS: LIPITOR PO SCH (20:17)
[2023-05-28 20:53] VITALS: RESP 18
[2023-05-29 05:08] VITALS: BP 125/66; PULSE 83; TEMP 97.9
[2023-05-29] MEDS: LASIX TAB PO SCH (05:08)
[2023-05-29 05:30] LABS: BASOPHILS % (AUTO) 0.4 % (0.0-3.0); EOSINOPHILS # (AUTO) 0.1 K/ul (0.0-0.7); EOSINOPHILS % (AUTO) 0.5 % (0.0-7.0); HEMATOCRIT 31.7 % (42.0-52.0); HEMOGLOBIN 9.9 g/dl (14.0-18.0); IMMATURE GRANULOCYTE % (AUTO) 0.4 % (0.0-5.0); MEAN CORPUSCULAR HEMOGLOBIN 30.6 pg (27.0-31.0); MEAN CORPUSCULAR HGB CONC 31.2 (31.8-35.4); MEAN CORPUSCULAR VOLUME 97.8 fl (80.0-94.0); MONOCYTES # (AUTO) 0.6 K/uL (0.4-2.0); MONOCYTES % (AUTO) 5.7 (0-10); NEUTROPHILS # (AUTO) 8.9 K/ul (2.0-6.9); PLATELET COUNT 224 10^3/uL (140-440); RDW COEFFICIENT OF VARIATION 13.9 % (11.6-14.8); RED BLOOD COUNT 3.24 10^6/ul (4.70-6.10); WHITE BLOOD COUNT 10.59 K/ul (4.2-10.2)
[2023-05-29 05:48] LABS: ALANINE AMINOTRANSFERASE 31.8 U/L (0-50); ALBUMIN 2.93 g/dL (3.5-5.0); ALKALINE PHOSPHATASE 123.7 U/L (56-119); ASPARTATE AMINO TRANSFERASE 100.5 U/L (17-59); BILIRUBIN,TOTAL 0.45 mg/dL (0.2-1.3); BLOOD UREA NITROGEN 38.8 mg/dL (9-20); CALCIUM 8.08 mg/dL (8.4-10.2); CARBON DIOXIDE 35.9 mmol/L (22-30.0); CHLORIDE 101.6 mmol/L (98-107); CREATININE 1.4 mg/dL (0.60-1.10); GLUCOSE 141.8 mg/dL (74-106); POTASSIUM 3.67 mmol/L (3.5-5.1); SODIUM 138.5 mmol/L (134.5-145); TOTAL PROTEIN 6.38 g/dL (6.3-8.2)
[2023-05-29] MEDS ORDERED: LEVAQUIN PO SCH (06:00)
[2023-05-29] MEDS ORDERED: PREDNISONE PO SCH (07:30)
[2023-05-29] MEDS: PULMICORT 1 MG/2 ML NEB SCH (07:56)
[2023-05-29] MEDS: DUONEB NEB PRN (07:58)
[2023-05-29] MEDS: FLOMAX PO SCH (08:14)
[2023-05-29] MEDS: IMDUR PO SCH (08:14)
[2023-05-29] MEDS: MUCINEX PO SCH (08:15)
[2023-05-29] MEDS: ASPIRIN CHEWABLE PO SCH (08:15)
[2023-05-29] MEDS: MIRALAX PO PRN (08:16)
[2023-05-29] MEDS: MYSOLINE PO SCH (08:18)
[2023-05-29] MEDS: TOPROL XL PO SCH (08:19)
[2023-05-29] MEDS: LOVENOX SUBCUT SCH (08:20)
--- NOTE | 2023-05-29 10:20 | DCSUM ---
Admission Date Admission Date: 05/22/23 Discharge Date Discharge Date: 05/29/23 Admission Diagnosis Admission Diagnosis: 1. Acute hypoxic respiratory failure in setting of CAP 2. Community acquired pneumonia, bilateral 3. NAILA, stage I 4. Elevated liver enzymes 5. DMT2 6. Hypertension 7. Hyperlipidemia Discharge Diagnosis Discharge Diagnosis: 1. Acute hypoxic hypercapnic respiratory failure in setting of CAP and sleep apnea - Improving 2. Community acquired pneumonia, bilateral - Improving 3. NAILA secondary to urinary retention/obstructive uropathy - Improving 4. Acute Transaminitis - Improving 5. Acute Metabolic Encephalopathy - Resolved 5. CHF - Resolved 6. DMT2 - Chronic, stable 7. Hypertension - Chronic, stable 8. Hyperlipidemia - Chronic, stable 9. Sleep apnea - New diagnosis 10. Chronic Respiratory Failure - New diagnosis Hospital Provider Hospital Provider[facility] Primary Care Physician Primary Care Physician: NANCI ACIN Summary of History and Physical Summary of History and Physical: Patient is a 72 year old male from home with pmhx of CAD s/p CABG x20 yrs ago, DMT2, hyperlipidemia, hypertension, BPH, who presented to the ER with 1 week history of cough, sob, fever, weakness. He took some antibiotics at home for a day or two without improvement. He does not wear home O2. He was found to be hypoxic in the 80s in the ER, improved with 2L. CXR shows likely bilateral pneumonia. WBC count was elevated at 20K, procal 0.44. Patient also has elevated Cr and BUN from baseline. States he's had decreased intake over last few days. Liver enzymes elevated. He was given fluids, azithromycin, and rocephin. Patient did well through the night but has a cough and drops into the 80s anytime he removes his O2. He states he is feeling somewhat better today. He lives at home with his and usually does not require any assistance with ambulation. Hospital Course Subjective: During the hospital stay the following course occurred: 05/23/23 Continued azith/rocephin and nebs. Wean O2 when able. Continued LR@100mL/hr due to NAILA. Liver enzymes elevated, trending and monitoring Blood cultures pending. Trending procal. 05/24/23 O2 sat dropped while sleeping and increased to 4L. Patient reported concern for sleep apnea in past did not go through with sleep study. LFTs trended up. Liver ultrasound ordered. Was not producing much urine. Has pmh of BPH. Yanes placed on this day. 05/25 Began requiring 5L O2, couldn't breathe, and edema noted to face, arms, and ankles. Stopped IV fluids. Started on lasix. No previous diagnosis of CHF in past but has had CABG. Unable to complete echo in house at this time. Liver US negative for acute process/cirrhosis. Continue to monitor LFTs NAILA improved once yanes in place. Blood cultures negative x 48 hours 05/26 Lethargic, falling asleep mid-conversation. ABG revealed hypercapnia. Placed on BiPAP and weaned with serial abgs. Due to severe sleep apnea and respiratory failure. Chest CT completed and showed bilateral pneumonia with no improvement. Antibiotics changed to levaquin from azith/rocephin. Added on solumedrol and pulmicort. 05/27 Bipap worn overnight. CO2 increased. Settings adjusted after abg at 4am. CO2 decreased at recheck at 745. Discussed Patient more alert and oriented x3. Continued levaquin, steroids, and nebs. Transitioned to NC at lunch time. Tolerated well. Weaned to 3L by afternoon. Legionella, sputum, and blood cultures negative. Kidney function stable. Diuresed well with lasix. Transitioned to PO today. 05/28 Bipap worn from 10pm-2am, patient took off and threw in floor. Tolerating 2-3L via NC oxygen well during the day. Continuing to diurese well. Echo completed by Dr. Caleb Starks and showed borderline diastolic dysfunction, LVH, and EF at approximately 65%. LFTs continue to improve. Transitioning to PO levaquin and steroids tomorrow 05/29 Discussed extensively with respiratory yesterday about trialing CPAP use last night. Miscommunication with nursing and RT. Patient was not placed on CPAP. Slept throughout the night. Labs improved overnight. Reports feeling better today. 1-2 assist on ambulation. Due to patient ABG and conditions, appears to have a chronic respiratory failure that has gone undiagnosed. Case management discussed need with [employer] that is working on getting patient a home machine prior to discharge. Also, due to acute illness and weakness, patient is [facility]OT to return to home level of functioning with titration of oxygen, continue PO antibiotics, and education of CPAP use and importance. Appearance: No Apparent Distress and Alert HEENT: MMM and Supple CVS: No Murmur Abdomen: Soft and Non-Tender Respiratory: No Dyspnea Extremities: No Edema Vital Signs: Most Recent Vital Signs Temperature 97.9 F 05/29/23 05:04 Temperature Source Temporal Artery Scan 05/29/23 05:04 Temperature Source Infrared 05/22/23 16:18 Pulse Rate 83 05/29/23 05:04 Respiratory Rate 18 05/29/23 05:04 Blood Pressure 125/66 05/29/23 05:04 Blood Pressure Mean 85 05/29/23 05:04 Blood Pressure Right Arm 137/61 05/22/23 20:33 Blood Pressure Location Left Arm 05/29/23 05:04 Blood Pressure Position Supine 05/29/23 05:04 O2 Sat by Pulse Oximetry 94 L 05/29/23 05:20 Oxygen Delivery Method Nasal Cannula 05/29/23 08:00 Oxygen Flow Rate 3 05/29/23 08:00 Fraction of Inspired Oxygen (FIO2) 30 05/28/23 00:59 Height 5 ft 11 in 05/27/23 11:17 Weight 208 lb 2 oz 05/29/23 05:04 Telemetry Type Remote Telemetry 05/29/23 07:00 Telemetry Monitoring Continues 05/29/23 07:00 Telemetry Heart Rate 87 05/29/23 07:00 Telemetry SPO2 96 05/29/23 07:00 EKG NV Interval 0.22 H 05/29/23 07:00 EKG QRS Interval 0.09 05/29/23 07:00 Telemetry Strip Reading NSR with 1st degree AVB 05/29/23 07:00 Lab Results Last 24 Hours: 05/29/23 04:50 WBC 10.59 H RBC 3.24 L Hgb 9.9 L Hct 31.7 L MCV 97.8 H MCH 30.6 MCHC 31.2 L RDW Coeff of Shaun 13.9 Plt Count 224 Immature Gran % (Auto) 0.4 Neut % (Auto) 84.0 H Lymph % (Auto) 9.0 L Reagan % (Auto) 5.7 Eos % (Auto) 0.5 Baso % (Auto) 0.4 Neut # (Auto) 8.9 H Lymph # (Auto) 1.0 Reagan # (Auto) 0.6 Eos # (Auto) 0.1 Baso # (Auto) 0.0 Immature Gran # (Auto) 0.0 Sodium 138.5 Potassium 3.67 Chloride 101.6 Carbon Dioxide 35.9 H Anion Gap 4.67 BUN 38.8 H Creatinine 1.40 H Estimated GFR (MDRD) 50.00 BUN/Creatinine Ratio 27.71 Glucose 141.8 H Calcium 8.08 L Total Bilirubin 0.45 AST 100.5 H D ALT 31.8 Alkaline Phosphatase 123.7 H Total Protein 6.38 Albumin 2.93 L Globulin 3.45 Albumin/Globulin Ratio 0.84 Discharge Instructions Discharge Planning: Discharge Planning > 40 minutes If patient is discharged with left ventricular systolic dysfunction: NA Discharged with a beta teddy? [] If no, why not? [] Discharged with an ben/arb? [] If no, why not? [] DX: CHRONIC RESPIRATORY FAILURE, CAP, LEON ADA DIET ACTIVITY TOLERATED ADMIT TO SWINGBED Discharge Medications: Medications at Discharge (Home Meds & RX) allopurinol 100 mg tablet 100 mg PO DAILY PRN Gout Flare 12/20/20 aspirin 81 mg tablet 81 mg PO DAILY 12/20/20 atorvastatin 40 mg tablet 40 mg PO BEDTIME 12/20/20 isosorbide mononitrate 30 mg tablet,extended release 24 hr 30 mg PO DAILY 12/20/20 losartan 100 mg-hydrochlorothiazide 25 mg tablet 1 tab PO DAILY 12/20/20 metformin 1,000 mg tablet 1,000 mg PO DAILY 12/20/20 metoprolol succinate 50 mg tablet,extended release 24 hr 50 mg PO DAILY 12/20/20 primidone 250 mg tablet 250 mg PO TID 12/20/20 Discharge Plan Discharge Patient Disposition: DISCH W/I HOSP TO SWING Prescriptions: No Action atorvastatin 40 mg tablet 40 mg PO BEDTIME Patient Comments: TAKE 1 TABLET BY MOUTH EVERYDAY AT BEDTIME metoprolol succinate 50 mg tablet extended release 24 hr 50 mg PO DAILY Patient Comments: TAKE 1 TABLET BY MOUTH EVERY DAY isosorbide mononitrate 30 mg tablet extended release 24 hr 30 mg PO DAILY Patient Comments: TAKE 1 TABLET BY MOUTH EVERY DAY allopurinol 100 mg tablet 100 mg PO DAILY PRN (Reason: Gout Flare) Patient Comments: TAKE 1 TABLET BY MOUTH DAILY. DO NOT START UNTIL GOUT FLARE RESOLVES. losartan-hydrochlorothiazide 100-25 mg tablet 1 tab PO DAILY Patient Comments: TAKE 1 TABLET BY MOUTH EVERY DAY primidone 250 mg tablet 250 mg PO TID Patient Comments: TAKE 1 TABLET BY MOUTH THREE TIMES A DAY metformin 1,000 mg tablet 1,000 mg PO DAILY Patient Comments: TAKE 1 TABLET BY MOUTH Daily WITH A MEAL aspirin 81 mg Tablet 81 mg PO DAILY Did you review [place] [employer] for ALL controlled substances?: No Discussed opioids are addictive and Narcan is available by prescription or from pharmacy.: No Condition: Stable
--- NOTE | 2023-05-31 13:24 | ECHO2D ---
Date of Exam: 05/28/2023 Ordering Physician: TRIP ELLINGTON APRN Room #: 114 Reason for Echo: CARDIOMEGALY, SOB, HTN, DM, CHF, CABG, RENAL FAILURE M-Mode Normal Adult Results LV Dimensions Normal Adult Results AoV Opening excursions >1.6 >1.6 LVEDD-base- 3.5-5.8 5.3 Ao root dimensions 2.0-3.7 3.8 LVESD-base- 3.1-4.6 L. Atrium dimensions 1.9-3.8 4.3 Post. Wall thickness 0.8-1.1 1.4 IV septum (thickness) 0.7-1.2 1.4 Post. Wall excursion 0.72-1.3 NORMAL Septal motion NORMAL Systolic motion R. Ventricular cavity 1.5-2.0 NORMAL LVEF 60% 64% Paradoxical septal wall motion NORMAL 2-D : 2-D M Mode Echocardiogram was performed using apical four chamber and left parasternal long and short axis views. Mitral, tricuspid and aortic valves appear to be normal. Contractility of the left ventricle seems to be normal, so is the cavity size. ENLARGED LEFT ATRIAL CAVITY. Aortic root appears to be normal. There is no pericardial effusion. There is no thrombus noted in the left ventricle or left atrial cavity. M-MODE: MV: NORMAL AV: NORMAL TV: NORMAL PV: CHAMBER SIZE: ENLARGED LEFT ATRIAL CAVITY WALL MOTION: NORMAL PERICARDIUM: NORMAL INTERPRETATION: 1. LEFT VENTRICLE HYPERTROPHY WITH ENLARGED LEFT ATRIAL CAVITY 2. VALVES--NORMAL 3. NORMAL LEFT VENTRICLE SIZE AND LEFT [facility]ICLE [facility]
== END 2023-05-29 13:16 | disposition swing bed (61) | DRG 682 ==
LOC: ED 16:15 → MEDSURG B 19:23
PROVIDERS: ADMIT Hospitalist; ATTEND Nurse Practitioner Family
DX: I25.810 Atherosclerosis of coronary artery bypass graft(s) without angina pectoris; G93.41 Metabolic encephalopathy; N13.9 Obstructive and reflux uropathy, unspecified; Z20.822 Contact with and (suspected) exposure to COVID-19; G47.33 Obstructive sleep apnea (adult) (pediatric); N17.9 Acute kidney failure, unspecified; N40.1 Benign prostatic hyperplasia with lower urinary tract symptoms; R09.02 Hypoxemia; E11.65 Type 2 diabetes mellitus with hyperglycemia; R53.1 Weakness; J96.01 Acute respiratory failure with hypoxia; E78.5 Hyperlipidemia, unspecified; R74.01 Elevation of levels of liver transaminase levels; J18.9 Pneumonia, unspecified organism; I11.0 Hypertensive heart disease with heart failure; I50.9 Heart failure, unspecified; R60.0 Localized edema